=== PATIENT | female | born 1995 | race Caucasian/White ===

== ENCOUNTER 2018-05-23 22:45 | Emergency (ER) | payer MEDICAID ==
[~2018-05-23] VITALS: Ht 157.5 cm; Wt 63.5 kg
--- NOTE | 2018-05-23 23:09 | PHYS DOC ---
Adult General Chief Complaint Chief Complaint: ABDOMINAL PAIN HPI HPI 22-year-old female presents to ER with complaints of lower abdominal pain which started today. Patient reports she felt fine yesterday. Patient states pain does radiate into her left side. Patient states her urine has been darker yellowed today. She denies any fever or chills, fatigue, or diarrhea. Patient reports she has chronic nausea and vomiting denies any acute change. She denies any vomiting episodes today. Patient reports she had regular bowel movement today. LMP 05/07/18. She denies any vaginal symptoms. She denies concerns for STD. Review of Systems Review of Systems Constitutional: Denies fever or chills. Denies fatigue Eyes: Denies change in visual acuity, redness, or eye pain [] HENT: Denies nasal congestion or sore throat [] Respiratory: Denies cough or shortness of breath [] Cardiovascular: No additional information not addressed in HPI [] GI: Denies bloody stools or diarrhea. Reports lower abd pain. She reports she has chronic episodes of intermittent N/V- denies any vomiting today. Reg. BM today : Denies dysuria or hematuria. Reports urine is darker today Musculoskeletal: Reports lower abd pain has radiated into lt side lower back Integument: Denies rash, swelling or skin lesions [] Neurologic: Denies headache, focal weakness or sensory changes [] All other systems were reviewed and found to be within normal limits, except as documented in this note. Allergies Allergies Allergies Coded Allergies Type Severity Reaction Last Updated Verified No Known Drug Allergies 05/24/18 No Physical Exam Physical Exam Constitutional: Well developed, well nourished, no acute distress, non-toxic appearance. [] HENT: Normocephalic, atraumatic, bilateral external ears normal, oropharynx moist, no oral exudates, nose normal. [] Eyes: PERRLA, EOMI, conjunctiva normal, no discharge. [] Neck: Normal range of motion, no tenderness, supple, no stridor. [] Cardiovascular:Heart rate regular rhythm, no murmur [] Lungs & Thorax: Bilateral breath sounds clear to auscultation [] Abdomen: Bowel sounds normal, soft, no tenderness, no masses, no pulsatile masses. [] Skin: Warm, dry, no erythema, no rash. [] Back: No tenderness, no CVA tenderness. [] Extremities: No tenderness, no cyanosis, no clubbing, ROM intact, no edema. [] Neurologic: Alert and oriented X 3, normal motor function, normal sensory function, no focal deficits noted. [] Psychologic: Affect normal, judgement normal, mood normal. [] Current Patient Data Vital Signs Vital Signs Date Time Temp Pulse Resp B/P (MAP) Pulse Ox O2 Delivery O2 Flow Rate FiO2 05/24/18 01:28 74 18 133/78 (96) 98 Room Air 05/23/18 23:58 98.6 98.6 Lab Values Laboratory Tests Test 05/23/18 22:47 05/23/18 23:02 05/24/18 00:10 Urine Collection Type Unknown Urine Color Yellow Urine Clarity Cloudy Urine pH 6.0 Urine Specific [place] >=1.030 Urine Protein 30 mg/dL (NEG-TRACE) Urine Glucose (UA) Negative mg/dL (NEG) Urine Ketones (Stick) Negative mg/dL (NEG) Urine Blood Moderate (NEG) Urine Nitrite Negative (NEG) Urine Bilirubin Negative (NEG) Urine Urobilinogen Dipstick 0.2 mg/dL (0.2 mg/dL) Urine Leukocyte Esterase Negative (NEG) Urine RBC 6-10 /HPF (0-2) Urine WBC 11-20 /HPF (0-4) Urine Squamous Epithelial Cells Mod /LPF Urine Bacteria Many /HPF (0-FEW) Urine Mucus Marked /LPF POC Urine HCG, Qualitative Hcg positive (Negative) White Blood Count 6.3 x10^3/uL (4.0-11.0) Red Blood Count 4.06 x10^6/uL (3.50-5.40) Hemoglobin 11.1 g/dL (12.0-15.5) L Hematocrit 32.7 % (36.0-47.0) L Mean Corpuscular Volume 81 fL (79-100) Mean Corpuscular Hemoglobin 27 pg (25-35) Mean Corpuscular Hemoglobin Concent 34 g/dL (31-37) Red Cell Distribution Width 16.4 % (11.5-14.5) H Platelet Count 211 x10^3/uL (140-400) Neutrophils (%) (Auto) 66 % (31-73) Lymphocytes (%) (Auto) 29 % (24-48) Monocytes (%) (Auto) 4 % (0-9) Eosinophils (%) (Auto) 1 % (0-3) Basophils (%) (Auto) 1 % (0-3) Neutrophils # (Auto) 4.1 x10^3uL (1.8-7.7) Lymphocytes # (Auto) 1.8 x10^3/uL (1.0-4.8) Monocytes # (Auto) 0.2 x10^3/uL (0.0-1.1) Eosinophils # (Auto) 0.1 x10^3/uL (0.0-0.7) Basophils # (Auto) 0.0 x10^3/uL (0.0-0.2) Maternal Serum HCG Beta Subunit 40519 mIU/mL (0-5) H Sodium Level 141 mmol/L (136-145) Potassium Level 3.5 mmol/L (3.5-5.1) Chloride Level 105 mmol/L (98-107) Carbon Dioxide Level 26 mmol/L (21-32) Anion Gap 10 (6-14) Blood Urea Nitrogen 9 mg/dL (7-20) Creatinine 0.5 mg/dL (0.6-1.0) L Estimated GFR (Cockcroft-Gault) 154.3 Glucose Level 100 mg/dL (70-99) H Calcium Level 9.1 mg/dL (8.5-10.1) Laboratory Tests 05/24/18 00:10 Laboratory Tests 05/24/18 00:10 Microbiology 05/24/18 Wet Prep - Final, Complete Microbiology 05/24/18 Wet Prep - Final, Complete EKG EKG [] Radiology/Procedures Radiology/Procedures Pelvic Exam: JOSELYN Hewitt present @ 0025 Abdomen: External Genitalia: Normal Skin- no rash/lesions Speculum: Normal vaginal mucosa- no erythema/lesions, thin white scant discharge in vaginal vault nonmalodorous- no discharge from cervix Bimanual: No adnexal masses. Tender bilat. adnexa/suprapubic area. No CMT. Cervical os closed with no blood/tissue in vaginal vault Impressions: IMPRESSION: 1. Intrauterine is identified with estimated gestational age of 11 weeks and 6 days with estimated due date 12/07/2018. 2. Small hypoechoic lesion left ovary. Could be secondary to causes such as a small hemorrhagic cyst or endometrioma but nonspecific appearance and attention on follow-up. Electronically signed by: Carlos Eduardo Carpio MD (05/24/2018 1:34 AM) [facility] Course & Med Decision Making Course & Med Decision Making Pertinent Labs and Imaging studies reviewed. (See chart for details) 1148: Patient's urine was positive. This was discussed with patient and her who is at bedside. Patient reports they had been trying for . With patient having lower abdominal cramping into left side additional tests ordered. Will obtain basic labs and do a pelvic exam to further evaluate patient's abdominal cramping. 0105: Discussed test results and US with 11 wk 5 day intrauterine preg. with FHTs 169 on US report. Discussed need to establish [facility] and OTC vitamins w/iron as H&H was low at 11.1/32.7- she reports she had anemia in past also with . She denies any abd pain at this time- she is smiling and in no distress with boyfriend at bedside. Discussed UA results with plans for Keflex. Encourage pt to increase fluid intake. Education provided on s&s to return to ER for and discharge instructions were discussed. Staff Physician Addendum: I was working in the ER during the course of this patient's visit. I was available for consultation as needed, but I was not directly involved in the care of this patient. Keith Disclaimer Dragon Disclaimer This electronic medical record was generated, in whole or in part, using a voice recognition dictation system. Departure Departure Impression: Primary Impression: Additional Impressions: Abdominal pain during Urinary tract infection Disposition: 01 HOME, SELF-CARE Condition: STABLE Referrals: NO PCP (PCP) Patient Instructions: Abdominal Pain During , , Urinary Tract Infection Additional Instructions: Drink plenty of water. vitamins with iron daily as your hemoglobin and hematocrit was lower than normal at 11.1/32.7. You need to call and schedule appointment with [facility] for care during your and to have labs rechecked. Your ultrasound showed you are 11 weeks and 5 days gestation [place] [address]- your [facility] doctor will need to those these numbers so take these instructions with you to your appointment. Scripts Cephalexin (KEFLEX) 500 Mg Capsule 1 CAP PO BID, #14 CAP 0 Refills Prov: SOLA ANDRE APRN 05/24/18 Problem Qualifiers REFFITTSOLA APRN May 23, 2018 23:09 MEREDITH GUEVARA MD May 24, 2018 05:48
[2018-05-23 23:10] LABS: BILIRUBIN,URINE NEGATIVE (NEG); CLARITY,URINE CLOUDY; COLOR,URINE YELLOW; NITRITE,URINE NEGATIVE (NEG); PROTEIN,URINE 30 mg/dL (NEG-TRACE); UROBILINOGEN,URINE 0.2 mg/dL (0.2 mg/dL)
[2018-05-23 23:15] LABS: BACTERIA,URINE MANY /HPF (0-FEW); SQUAMOUS EPITHELIAL CELL,UR MOD /LPF
[2018-05-24 00:22] LABS: BASO % 1 % (0-3); EOS # 0.1 x10^3/uL (0.0-0.7); EOS % 1 % (0-3); HEMATOCRIT 32.7 % (36.0-47.0); HEMOGLOBIN 11.1 g/dL (12.0-15.5); LYMPH # 1.8 x10^3/uL (1.0-4.8); LYMPH % 29 % (24-48); MEAN CORPUSCULAR HEMOGLOBIN 27 pg (25-35); MEAN CORPUSCULAR HGB CONC 34 g/dL (31-37); MEAN CORPUSCULAR VOLUME 81 fL (79-100); MONO # 0.2 x10^3/uL (0.0-1.1); MONO % 4 % (0-9); NEUT # 4.1 x10^3uL (1.8-7.7); NEUT % 66 % (31-73); PLATELET COUNT 211 x10^3/uL (140-400); RED BLOOD COUNT 4.06 x10^6/uL (3.50-5.40); RED CELL DISTRIBUTION WIDTH 16.4 % (11.5-14.5); WHITE BLOOD COUNT 6.3 x10^3/uL (4.0-11.0)
[2018-05-24 00:30] LABS: CALCIUM 9.1 mg/dL (8.5-10.1); CREATININE 0.5 mg/dL (0.6-1.0); GFR 154.3; POTASSIUM 3.5 mmol/L (3.5-5.1)
[2018-05-24] MEDS ORDERED: CEPH-264 PO (01:10)
[2018-05-24 01:28] VITALS: BP 133/78
--- NOTE | 2018-05-24 01:38 | RAD ---
INDICATION: LEFT PELVIC PAIN X'S 1 DAY. COMPARISON: None. TECHNIQUE: Grayscale and color ultrasound images uterus and adnexa. Transabdominal and transvaginal images obtained. FINDINGS: Uterus: 120 x 100 x 90 mm. Intrauterine gestational sac is identified with a pole with crown-rump length of 51 mm and heart beat of 169. Right Ovary: 21 x 18 x 11 mm. Left Ovary: 38 x 20 x 19 mm. Vascular flow identified to bilateral ovaries. Hypoechoic lesion left ovary, 18 mm. IMPRESSION: 1. Intrauterine is identified with estimated gestational age of 11 weeks and 6 days with estimated due date 12/07/2018. 2. Small hypoechoic lesion left ovary. Could be secondary to causes such as a small hemorrhagic cyst or endometrioma but nonspecific appearance and attention on follow-up. Electronically signed by: Carlos Eduardo Carpio MD (05/24/2018 1:34 AM) [facility]
[2018-05-25 13:17] LABS: GC PROBE Negative (Negative)
== END 2018-05-24 01:29 | disposition home or self-care (01) ==
LOC: ER 22:45
DX: O23.41 Unspecified infection of urinary tract in pregnancy, first trimester (principal); Z3A.11 11 weeks gestation of pregnancy
CPT/HCPCS: 36415; 76801; 80048; 81001; 81025; 84702; 85025; 87086; 87491; 87591; 99284; Q0111

== ENCOUNTER 2018-06-19 18:25 | Emergency (ER) | payer MEDICAID ==
[~2018-06-19] VITALS: Ht 157.5 cm; Wt 74.4 kg
[~2018-06-19 18:25] MED LIST: CEPH-264 PO
[2018-06-19] MEDS ORDERED: IV NORMAL SALINE 1000ML BAG 1,000 ML IV ONE (19:00)
[2018-06-19 19:28] LABS: BASO # 0.1 x10^3/uL (0.0-0.2); BASO % 1 % (0-3); EOS % 0 % (0-3); HEMATOCRIT 34.4 % (36.0-47.0); HEMOGLOBIN 11.6 g/dL (12.0-15.5); LYMPH # 1.1 x10^3/uL (1.0-4.8); LYMPH % 10 % (24-48); MEAN CORPUSCULAR HEMOGLOBIN 28 pg (25-35); MEAN CORPUSCULAR HGB CONC 34 g/dL (31-37); MEAN CORPUSCULAR VOLUME 82 fL (79-100); MONO # 0.4 x10^3/uL (0.0-1.1); MONO % 3 % (0-9); NEUT % 86 % (31-73); PLATELET COUNT 187 x10^3/uL (140-400); RED BLOOD COUNT 4.22 x10^6/uL (3.50-5.40); RED CELL DISTRIBUTION WIDTH 17.2 % (11.5-14.5); WHITE BLOOD COUNT 11.6 x10^3/uL (4.0-11.0)
[2018-06-19 19:38] LABS: CALCIUM 9.1 mg/dL (8.5-10.1); CREATININE 0.5 mg/dL (0.6-1.0); GFR 154.3; POTASSIUM 3.9 mmol/L (3.5-5.1)
[2018-06-19 19:44] LABS: ALBUMIN/GLOBULIN RATIO 0.6 (1.0-1.7); TOTAL BILIRUBIN 0.3 mg/dL (0.2-1.0); TOTAL PROTEIN 7.8 g/dL (6.4-8.2)
[2018-06-19 20:19] VITALS: BP 109/71
--- NOTE | 2018-06-19 20:33 | RAD ---
EXAM: Obstetrics sonogram. HISTORY: Vaginal spotting. Back pain. TECHNIQUE: Sonographic imaging of a gravid uterus was performed. COMPARISON: 05/24/2018. FINDINGS: There is a single intrauterine fetus with a heart rate of 152 bpm. The cervix is closed and measures 6.6 cm in length. The amniotic fluid volume is grossly normal. No placental production is seen. No subchronic hematoma is seen. The maternal adnexal regions are unremarkable. There is no pelvic free fluid. The biparietal diameter is 2.97 cm, corresponding with 15 weeks and 3 days. The head circumference is 11.3 cm, corresponding with 15 weeks and 3 days. The abdominal circumference is 9.90 cm, corresponding with 16 weeks and 0 days. The femoral length is 1.91 cm, corresponding with 15 weeks and 5 days. The estimated gestational age patient combined ultrasound measurements is 15 weeks and 5 days. The EDUIN based on ultrasound measurements is 12/06/2018. IMPRESSION: Single intrauterine fetus with an estimated gestational age based on ultrasound measurements of 15 weeks and 5 days and heart rate of 152 bpm. There is no acute finding. A formal anatomy survey at approximately 20 weeks gestation is recommended. Electronically signed by: Kimmy Cancino MD (06/19/2018 8:28 PM) [facility]
--- NOTE | 2018-06-19 20:37 | PHYS DOC ---
Past Medical History Past Medical History: Anemia Past Surgical History: No Surgical History Alcohol Use: None Drug Use: None Adult General Chief Complaint Chief Complaint: VOMITING IN HPI HPI Patient is a 22 year old [f__sex] who presents with [] Review of Systems Review of Systems Constitutional: Denies fever or chills [] Eyes: Denies change in visual acuity, redness, or eye pain [] HENT: Denies nasal congestion or sore throat [] Respiratory: Denies cough or shortness of breath [] Cardiovascular: No additional information not addressed in HPI [] GI: Denies abdominal pain, nausea, vomiting, bloody stools or diarrhea [] : Denies dysuria or hematuria [] Musculoskeletal: Denies back pain or joint pain [] Integument: Denies rash or skin lesions [] Neurologic: Denies headache, focal weakness or sensory changes [] Endocrine: Denies polyuria or polydipsia [] All other systems were reviewed and found to be within normal limits, except as documented in this note. Current Medications Current Medications Current Medications Medications (Trade) Dose Ordered Sig/Lele Start Time Stop Time Status Last Admin Dose Admin Sodium Chloride 1,000 ml @ 1,000 mls/hr 1X ONCE 06/19/18 19:00 06/19/18 19:59 DC 06/19/18 19:48 1,000 MLS/HR Allergies Allergies Allergies Coded Allergies Type Severity Reaction Last Updated Verified No Known Drug Allergies 05/24/18 No Physical Exam Physical Exam Constitutional: Well developed, well nourished, no acute distress, non-toxic appearance. [] HENT: Normocephalic, atraumatic, bilateral external ears normal, oropharynx moist, no oral exudates, nose normal. [] Eyes: PERRLA, EOMI, conjunctiva normal, no discharge. [] Neck: Normal range of motion, no tenderness, supple, no stridor. [] Cardiovascular:Heart rate regular rhythm, no murmur [] Lungs & Thorax: Bilateral breath sounds clear to auscultation [] Abdomen: Bowel sounds normal, soft, no tenderness, no masses, no pulsatile masses. [] Skin: Warm, dry, no erythema, no rash. [] Back: No tenderness, no CVA tenderness. [] Extremities: No tenderness, no cyanosis, no clubbing, ROM intact, no edema. [] Neurologic: Alert and oriented X 3, normal motor function, normal sensory function, no focal deficits noted. [] Psychologic: Affect normal, judgement normal, mood normal. [] Current Patient Data Vital Signs Vital Signs Date Time Temp Pulse Resp B/P (MAP) Pulse Ox O2 Delivery O2 Flow Rate FiO2 06/19/18 19:04 98.6 78 16 127/68 (87) 100 Room Air 98.6 Lab Values Laboratory Tests Test 06/19/18 19:16 06/19/18 21:25 White Blood Count 11.6 x10^3/uL (4.0-11.0) H Red Blood Count 4.22 x10^6/uL (3.50-5.40) Hemoglobin 11.6 g/dL (12.0-15.5) L Hematocrit 34.4 % (36.0-47.0) L Mean Corpuscular Volume 82 fL (79-100) Mean Corpuscular Hemoglobin 28 pg (25-35) Mean Corpuscular Hemoglobin Concent 34 g/dL (31-37) Red Cell Distribution Width 17.2 % (11.5-14.5) H Platelet Count 187 x10^3/uL (140-400) Neutrophils (%) (Auto) 86 % (31-73) H Lymphocytes (%) (Auto) 10 % (24-48) L Monocytes (%) (Auto) 3 % (0-9) Eosinophils (%) (Auto) 0 % (0-3) Basophils (%) (Auto) 1 % (0-3) Neutrophils # (Auto) 10.0 x10^3uL (1.8-7.7) H Lymphocytes # (Auto) 1.1 x10^3/uL (1.0-4.8) Monocytes # (Auto) 0.4 x10^3/uL (0.0-1.1) Eosinophils # (Auto) 0.0 x10^3/uL (0.0-0.7) Basophils # (Auto) 0.1 x10^3/uL (0.0-0.2) Segmented Neutrophils % 94 % (35-66) H Lymphocytes % 5 % (24-48) L Monocytes % 1 % (0-10) Platelet Estimate Adequate (ADEQUATE) Anisocytosis Slight Target Cells Occ Maternal Serum HCG Beta Subunit 13775 mIU/mL (0-5) H Sodium Level 137 mmol/L (136-145) Potassium Level 3.9 mmol/L (3.5-5.1) Chloride Level 101 mmol/L (98-107) Carbon Dioxide Level 26 mmol/L (21-32) Anion Gap 10 (6-14) Blood Urea Nitrogen 7 mg/dL (7-20) Creatinine 0.5 mg/dL (0.6-1.0) L Estimated GFR (Cockcroft-Gault) 154.3 BUN/Creatinine Ratio 14 (6-20) Glucose Level 86 mg/dL (70-99) Calcium Level 9.1 mg/dL (8.5-10.1) Total Bilirubin 0.3 mg/dL (0.2-1.0) Aspartate Amino Transferase (AST) 30 U/L (15-37) Alanine Aminotransferase (ALT) 70 U/L (14-59) H Alkaline Phosphatase 88 U/L (46-116) Total Protein 7.8 g/dL (6.4-8.2) Albumin 3.0 g/dL (3.4-5.0) L Albumin/Globulin Ratio 0.6 (1.0-1.7) L Urine Collection Type Unknown Urine Color Yellow Urine Clarity Clear Urine pH 6.0 Urine Specific [place] 1.020 Urine Protein Negative mg/dL (NEG-TRACE) Urine Glucose (UA) Negative mg/dL (NEG) Urine Ketones (Stick) 40 mg/dL (NEG) Urine Blood Trace (NEG) Urine Nitrite Positive (NEG) Urine Bilirubin Negative (NEG) Urine Urobilinogen Dipstick 0.2 mg/dL (0.2 mg/dL) Urine Leukocyte Esterase Small (NEG) Urine RBC 6-10 /HPF (0-2) Urine WBC 11-20 /HPF (0-4) Urine Squamous Epithelial Cells Few /LPF Urine Bacteria Many /HPF (0-FEW) Laboratory Tests 06/19/18 19:16 Laboratory Tests 06/19/18 19:16 EKG EKG [] Radiology/Procedures Radiology/Procedures []Signed PATIENT: SHAKEEL MORRISON ACCOUNT: [id number] : 1995 LOCATION: ER AGE: 22 SEX: F EXAM STATUS: REG ER ORD. PHYSICIAN: BERNICE FELIX APRN REASON: spotting PROCEDURE: PREG MORE THAN OR EQ TO 14 WKS EXAM: Obstetrics sonogram. HISTORY: Vaginal spotting. Back pain. TECHNIQUE: Sonographic imaging of a gravid uterus was performed. COMPARISON: 05/24/2018. FINDINGS: There is a single intrauterine fetus with a heart rate of 152 bpm. The cervix is closed and measures 6.6 cm in length. The amniotic fluid volume is grossly normal. No placental production is seen. No subchronic hematoma is seen. The maternal adnexal regions are unremarkable. There is no pelvic free fluid. The biparietal diameter is 2.97 cm, corresponding with 15 weeks and 3 days. The head circumference is 11.3 cm, corresponding with 15 weeks and 3 days. The abdominal circumference is 9.90 cm, corresponding with 16 weeks and 0 days. The femoral length is 1.91 cm, corresponding with 15 weeks and 5 days. The estimated gestational age patient combined ultrasound measurements is 15 weeks and 5 days. The EDUIN based on ultrasound measurements is 12/06/2018. IMPRESSION: Single intrauterine fetus with an estimated gestational age based on ultrasound measurements of 15 weeks and 5 days and heart rate of 152 bpm. There is no acute finding. A formal anatomy survey at approximately 20 weeks gestation is recommended. Electronically signed by: Kimmy Cancino MD (06/19/2018 8:28 PM) [facility] DICTATED and SIGNED BY: KIMMY CANCINO MD DATE: 06/19/182025 Course & Med Decision Making Course & Med Decision Making Pertinent Labs and Imaging studies reviewed. (See chart for details) [] Dragon Disclaimer Dragon Disclaimer This electronic medical record was generated, in whole or in part, using a voice recognition dictation system. Departure Departure Impression: Primary Impression: Urinary tract infection affecting Disposition: 01 HOME, SELF-CARE Condition: STABLE Referrals: NO PCP (PCP) Patient Instructions: - Urinary Tract Infection Additional Instructions: Take the antibiotic as directed. Follow-up with your PCP or activated sludge attendant in one week for urine recheck. If you have increased symptoms follow-up with your activated sludge attendant earlier or return to the emergency department. Scripts Nitrofurantoin Monohyd/M-Cryst (MACROBID 100 MG CAPSULE) 100 Mg Capsule 1 CAP PO BID for uti, #14 CAP Prov: BERNICE FELIX APRN 06/19/18 BERNICE FELIX APRN Jun 19, 2018 20:37
[2018-06-19 21:00] LABS: % LYMPHS 5 % (24-48); % MONOS 1 % (0-10); % SEGS 94 % (35-66); ANISOCYTOSIS SLIGHT; PLT ESTIMATE ADEQUATE (ADEQUATE); TARGET CELLS OCC
[2018-06-19 21:37] LABS: BILIRUBIN,URINE NEGATIVE (NEG); CLARITY,URINE CLEAR; COLOR,URINE YELLOW; NITRITE,URINE POSITIVE (NEG); PROTEIN,URINE NEGATIVE (NEG-TRACE); UROBILINOGEN,URINE 0.2 mg/dL (0.2 mg/dL)
[2018-06-19 21:49] LABS: BACTERIA,URINE MANY /HPF (0-FEW); SQUAMOUS EPITHELIAL CELL,UR FEW /LPF
[2018-06-19] MEDS ORDERED: NITR100C62 PO (22:19)
[2018-06-20] MEDS ORDERED: METO10TA81 PO (16:27)
== END 2018-06-19 22:34 | disposition home or self-care (01) ==
LOC: ER 18:25
DX: O23.42 Unspecified infection of urinary tract in pregnancy, second trimester (principal); O99.012 Anemia complicating pregnancy, second trimester; O21.9 Vomiting of pregnancy, unspecified; Z3A.15 15 weeks gestation of pregnancy
CPT/HCPCS: 36415; 76805; 80053; 81001; 84702; 85007; 85025; 86850; 86900; 86901; 87086; 87186; 96360; 99284; J7030

== ENCOUNTER 2018-06-20 13:14 | Emergency (ER) | payer MEDICAID ==
[~2018-06-20] VITALS: Ht 157.5 cm; Wt 74.4 kg
[~2018-06-20 13:14] MED LIST changes: +NITR100C62 PO
[2018-06-20] MEDS ORDERED: IV NORMAL SALINE 1000ML BAG 1,000 ML IV SCH (14:48)
[2018-06-20] MEDS ORDERED: cefTRIAXone IV Push 1 GM VIAL. IVP ONE (15:00)
[2018-06-20] MEDS ORDERED: METOCLOPRAMIDE HCL 10 MG/2 ML VIAL. IV ONE (15:00)
[2018-06-20 15:06] LABS: BILIRUBIN,URINE NEGATIVE (NEG); CLARITY,URINE CLEAR; COLOR,URINE YELLOW; NITRITE,URINE POSITIVE (NEG); PH,URINE 7.5; PROTEIN,URINE NEGATIVE (NEG-TRACE)
[2018-06-20 15:12] LABS: BACTERIA,URINE MODERATE /HPF (0-FEW); RBC,URINE RARE /HPF (0-2); SQUAMOUS EPITHELIAL CELL,UR FEW /LPF
--- NOTE | 2018-06-20 15:36 | PHYS DOC ---
Past Medical History Past Medical History: Anemia Past Surgical History: No Surgical History Alcohol Use: None Drug Use: None Adult General Chief Complaint Chief Complaint: ABDOMINAL PAIN IN HPI HPI Patient is a 22 year old female presented to ER today for evaluation of lower abdominal pain, nausea or vomiting. Patient is 16 weeks , she was just seen here yesterday for the same problem. She was diagnosed with the UTI, she was put on Macrobid. However she did not have her medication filled. SHe came back here today because she woke up this morning continued to throw up and abdominal cramping. Patient also had an ultrasound OF her pelvic yesterday show a normal IUP. Patient denies any vaginal bleeding or discharge. Review of Systems Review of Systems Constitutional: Denies fever or chills [] Eyes: Denies change in visual acuity, redness, or eye pain [] HENT: Denies nasal congestion or sore throat [] Respiratory: Denies cough or shortness of breath [] Cardiovascular: No additional information not addressed in HPI [] GI: Positive for abdominal pain, nausea, vomiting, NO bloody stools or diarrhea [] : Denies dysuria or hematuria [] Musculoskeletal: Denies back pain or joint pain [] Integument: Denies rash or skin lesions [] Neurologic: Denies headache, focal weakness or sensory changes [] Endocrine: Denies polyuria or polydipsia [] All other systems were reviewed and found to be within normal limits, except as documented in this note. Current Medications Current Medications Current Medications Medications (Trade) Dose Ordered Sig/Lele Start Time Stop Time Status Last Admin Dose Admin Acetaminophen (Tylenol) 1,000 mg 1X ONCE 06/20/18 16:15 06/20/18 16:16 DC Ceftriaxone Sodium (Rocephin) 1 gm 1X ONCE 06/20/18 15:00 06/20/18 15:01 DC 06/20/18 15:08 1 GM Metoclopramide HCl (Reglan Vial) 10 mg 1X ONCE 06/20/18 15:00 06/20/18 15:01 DC 06/20/18 15:07 10 MG Sodium Chloride 1,000 ml @ 1,000 mls/hr Q1H 06/20/18 14:48 06/20/18 15:47 DC 06/20/18 15:08 1,000 MLS/HR Allergies Allergies Allergies Coded Allergies Type Severity Reaction Last Updated Verified No Known Drug Allergies 05/24/18 No Physical Exam Physical Exam Constitutional: Well developed, well nourished, no acute distress, non-toxic appearance. [] HENT: Normocephalic, atraumatic, bilateral external ears normal, oropharynx moist, no oral exudates, nose normal. [] Eyes: PERRLA, EOMI, conjunctiva normal, no discharge. [] Neck: Normal range of motion, no tenderness, supple, no stridor. [] Cardiovascular:Heart rate regular rhythm, no murmur [] Lungs & Thorax: Bilateral breath sounds clear to auscultation [] Abdomen: Bowel sounds normal, soft, tenderness AT SUPRAPUBIC AREA, no masses, no pulsatile masses. NO MCBURNEY POINT TENDERNESS, NO REBOUND, NO GUARDING, NO RLQ TENDERNESS TO PALPATION. Skin: Warm, dry, no erythema, no rash. [] Back: No tenderness, no CVA tenderness. [] Extremities: No tenderness, no cyanosis, no clubbing, ROM intact, no edema. [] Neurologic: Alert and oriented X 3, normal motor function, normal sensory function, no focal deficits noted. [] Psychologic: Affect normal, judgement normal, mood normal. [] Current Patient Data Vital Signs Vital Signs Date Time Temp Pulse Resp B/P (MAP) Pulse Ox O2 Delivery O2 Flow Rate FiO2 06/20/18 14:35 97.7 96 20 115/64 (81) 100 Room Air 97.7 Lab Values Laboratory Tests Test 06/20/18 14:45 06/20/18 15:30 Urine Collection Type Unknown Urine Color Yellow Urine Clarity Clear Urine pH 7.5 Urine Specific [place] 1.015 Urine Protein Negative mg/dL (NEG-TRACE) Urine Glucose (UA) Negative mg/dL (NEG) Urine Ketones (Stick) 40 mg/dL (NEG) Urine Blood Negative (NEG) Urine Nitrite Positive (NEG) Urine Bilirubin Negative (NEG) Urine Urobilinogen Dipstick 2.0 mg/dL (0.2 mg/dL) Urine Leukocyte Esterase Moderate (NEG) Urine RBC Rare /HPF (0-2) Urine WBC 1-4 /HPF (0-4) Urine Squamous Epithelial Cells Few /LPF Urine Bacteria Moderate /HPF (0-FEW) White Blood Count 11.1 x10^3/uL (4.0-11.0) H Red Blood Count 4.07 x10^6/uL (3.50-5.40) Hemoglobin 11.3 g/dL (12.0-15.5) L Hematocrit 32.8 % (36.0-47.0) L Mean Corpuscular Volume 81 fL (79-100) Mean Corpuscular Hemoglobin 28 pg (25-35) Mean Corpuscular Hemoglobin Concent 35 g/dL (31-37) Red Cell Distribution Width 17.4 % (11.5-14.5) H Platelet Count 165 x10^3/uL (140-400) Neutrophils (%) (Auto) 92 % (31-73) H Lymphocytes (%) (Auto) 4 % (24-48) L Monocytes (%) (Auto) 4 % (0-9) Eosinophils (%) (Auto) 0 % (0-3) Basophils (%) (Auto) 0 % (0-3) Neutrophils # (Auto) 10.3 x10^3uL (1.8-7.7) H Lymphocytes # (Auto) 0.4 x10^3/uL (1.0-4.8) L Monocytes # (Auto) 0.4 x10^3/uL (0.0-1.1) Eosinophils # (Auto) 0.0 x10^3/uL (0.0-0.7) Basophils # (Auto) 0.0 x10^3/uL (0.0-0.2) Sodium Level 135 mmol/L (136-145) L Potassium Level 3.4 mmol/L (3.5-5.1) L Chloride Level 101 mmol/L (98-107) Carbon Dioxide Level 21 mmol/L (21-32) Anion Gap 13 (6-14) Blood Urea Nitrogen 6 mg/dL (7-20) L Creatinine 0.5 mg/dL (0.6-1.0) L Estimated GFR (Cockcroft-Gault) 154.3 BUN/Creatinine Ratio 12 (6-20) Glucose Level 95 mg/dL (70-99) Calcium Level 9.1 mg/dL (8.5-10.1) Total Bilirubin 0.4 mg/dL (0.2-1.0) Aspartate Amino Transferase (AST) 28 U/L (15-37) Alanine Aminotransferase (ALT) 58 U/L (14-59) Alkaline Phosphatase 91 U/L (46-116) Total Protein 7.7 g/dL (6.4-8.2) Albumin 2.9 g/dL (3.4-5.0) L Albumin/Globulin Ratio 0.6 (1.0-1.7) L Lipase 68 U/L (73-393) L Laboratory Tests 06/20/18 15:30 Laboratory Tests 06/20/18 15:30 EKG EKG [] Radiology/Procedures Radiology/Procedures [] Course & Med Decision Making Course & Med Decision Making Pertinent Labs and Imaging studies reviewed. (See chart for details) Patient was given IV fluid and nausea medication, felt much better, will discharge her home with nausea mediation. Patient already has the prescription for MACROBID that she received yesterday. She will go get it filled after leaving here. Dragon Disclaimer Dragon Disclaimer This electronic medical record was generated, in whole or in part, using a voice recognition dictation system. Departure Departure Impression: Primary Impression: Urinary tract infection Additional Impressions: Abdominal pain during Nausea & vomiting Disposition: 01 HOME, SELF-CARE Condition: IMPROVED Referrals: SYED MALIN Jr, MD call this [facility] [facility] [facility] doctor for follow up next week. Patient Instructions: Abdominal Pain During , Nausea and Vomiting, Urinary Tract Infection, Child Scripts Metoclopramide Hcl (REGLAN) 10 Mg Tablet 1 TAB PO QID PRN for NAUSEA, #30 TAB Prov: PRISCILLA JACOBS DO 06/20/18 Problem Qualifiers PRISCILLA JACOBS DO Jun 20, 2018 15:36
[2018-06-20 15:42] LABS: BASO % 0 % (0-3); EOS % 0 % (0-3); HEMATOCRIT 32.8 % (36.0-47.0); HEMOGLOBIN 11.3 g/dL (12.0-15.5); LYMPH # 0.4 x10^3/uL (1.0-4.8); LYMPH % 4 % (24-48); MEAN CORPUSCULAR HEMOGLOBIN 28 pg (25-35); MEAN CORPUSCULAR HGB CONC 35 g/dL (31-37); MEAN CORPUSCULAR VOLUME 81 fL (79-100); MONO # 0.4 x10^3/uL (0.0-1.1); MONO % 4 % (0-9); NEUT # 10.3 x10^3uL (1.8-7.7); NEUT % 92 % (31-73); PLATELET COUNT 165 x10^3/uL (140-400); RED BLOOD COUNT 4.07 x10^6/uL (3.50-5.40); RED CELL DISTRIBUTION WIDTH 17.4 % (11.5-14.5); WHITE BLOOD COUNT 11.1 x10^3/uL (4.0-11.0)
[2018-06-20 15:55] LABS: CALCIUM 9.1 mg/dL (8.5-10.1); CREATININE 0.5 mg/dL (0.6-1.0); GFR 154.3; POTASSIUM 3.4 mmol/L (3.5-5.1)
[2018-06-20 16:01] LABS: ALBUMIN 2.9 g/dL (3.4-5.0); ALBUMIN/GLOBULIN RATIO 0.6 (1.0-1.7); TOTAL BILIRUBIN 0.4 mg/dL (0.2-1.0); TOTAL PROTEIN 7.7 g/dL (6.4-8.2)
[2018-06-20] MEDS ORDERED: ACETAMINOPHEN 500 MG TABLET PO ONE (16:15)
[2018-06-20] MEDS ORDERED: METO10TA81 PO (16:27)
[2018-06-20 16:42] VITALS: BP 112/65
--- NOTE | 2018-06-22 16:13 | VNOTE ---
CALL BACK NOTE CALL BACK Microbiology 06/20/18 Urine Culture - Final, Complete 06/20/18 Urine Culture Result 1 (MICHAELA) - Final, Complete 06/20/18 Antimicrobic Susceptibility - Final, Complete Spoke to patient about her urine culture, she states she is feeling better. She' ll follow-up with her TRANSITIONAL CARE NURSE Attending Signature I have reviewed the PA/STOCKROOM SELECTOR's note and plan of care. I was available for consultation as needed during the patient's visit in the emergency department. I agree with the clinical impression, plan, and disposition. TORSTEN COLMENARES APRN Jun 22, 2018 16:13 CIRILO CRADONA DO Jun 24, 2018 14:07
== END 2018-06-20 16:55 | disposition home or self-care (01) ==
LOC: ER 13:14
DX: O23.42 Unspecified infection of urinary tract in pregnancy, second trimester (principal); Z3A.16 16 weeks gestation of pregnancy
CPT/HCPCS: 36415; 80053; 81001; 83690; 85025; 87086; 96361; 96374; 96375; 99283; J0696; J2765; J7030; 87186

== ENCOUNTER 2018-08-10 16:03 | Observation (INO) | payer MEDICAID ==
[~2018-08-10] VITALS: Ht 158.8 cm; Wt 78.0 kg
[~2018-08-10 16:03] MED LIST changes: +METO10TA81 PO
[2018-08-10 17:40] LABS: BILIRUBIN,URINE NEGATIVE (NEG); CLARITY,URINE CLEAR; COLOR,URINE YELLOW; NITRITE,URINE POSITIVE (NEG); PROTEIN,URINE NEGATIVE (NEG-TRACE); UROBILINOGEN,URINE 0.2 mg/dL (0.2 mg/dL)
[2018-08-10 17:46] LABS: BACTERIA,URINE MANY /HPF (0-FEW); BARBITURATES NEG (NEG); BENZODIAZEPINES NEG (NEG); CANNABINOIDS NEG (NEG); COCAINE NEG (NEG); METHADONE NEG (NEG); OPIATES NEG (NEG); PHENCYCLIDINE NEG (NEG); SQUAMOUS EPITHELIAL CELL,UR MANY /LPF
[2018-08-10 17:47] LABS: RBC,URINE 0 /HPF (0-2)
[2018-08-10 17:50] LABS: AMPHETAMINE/METHAMPHETAMINE NEG (NEG)
[2018-08-10] MEDS: IV RINGERS,LACTATED 1000ML 1,000 ML IV PRN ×2 (17:56→20:03)
[2018-08-10 19:19] LABS: BASO % 0 % (0-3); EOS # 0.1 x10^3/uL (0.0-0.7); EOS % 1 % (0-3); HEMATOCRIT 33.4 % (36.0-47.0); HEMOGLOBIN 10.7 g/dL (12.0-15.5); LYMPH # 1.2 x10^3/uL (1.0-4.8); LYMPH % 11 % (24-48); MEAN CORPUSCULAR HEMOGLOBIN 27 pg (25-35); MEAN CORPUSCULAR HGB CONC 32 g/dL (31-37); MEAN CORPUSCULAR VOLUME 84 fL (79-100); MONO # 0.4 x10^3/uL (0.0-1.1); MONO % 4 % (0-9); NEUT # 9.5 x10^3uL (1.8-7.7); NEUT % 85 % (31-73); PLATELET COUNT 214 x10^3/uL (140-400); RED CELL DISTRIBUTION WIDTH 15.3 % (11.5-14.5); WHITE BLOOD COUNT 11.2 x10^3/uL (4.0-11.0)
[2018-08-10 19:26] LABS: CREATININE 0.4 mg/dL (0.6-1.0); GFR 199.6; POTASSIUM 3.3 mmol/L (3.5-5.1)
[2018-08-10 19:32] LABS: ALBUMIN 3.1 g/dL (3.4-5.0); ALBUMIN/GLOBULIN RATIO 0.7 (1.0-1.7); TOTAL BILIRUBIN 0.3 mg/dL (0.2-1.0); TOTAL PROTEIN 7.7 g/dL (6.4-8.2)
[2018-08-10] MEDS ORDERED: ZOLPIDEM 5 MG TABLET. PO PRN (19:45)
[2018-08-10] MEDS: ACETAMINOPHEN 500 MG TABLET PO PRN (20:17)
[2018-08-10] MEDS: ceFAZolin SODIUM 1 GM in IV DEXTROSE 5% 50 ML IV SCH (20:17)
[2018-08-10] MEDS ORDERED: diphenhydrAMINE HCL 25 MG CAPSULE PO ONE (20:30)
[2018-08-11] MEDS: ceFAZolin SODIUM 1 GM in IV DEXTROSE 5% 50 ML IV SCH ×2 (01:45→07:56)
[2018-08-11] MEDS: IV RINGERS,LACTATED 1000ML 1,000 ML IV PRN (04:22)
[2018-08-11] MEDS: ACETAMINOPHEN 500 MG TABLET PO PRN (04:23)
[2018-08-11 23:14] LABS: HEMOGLOBIN A1C 4.9 % (4.8-5.6)
== END 2018-08-11 10:30 | disposition home or self-care (01) ==
LOC: 3 SO LND 16:03
PROVIDERS: ADMIT Specialist; ATTEND Specialist
DX: O26.892 Other specified pregnancy related conditions, second trimester (principal); R10.9 Unspecified abdominal pain; Z3A.23 23 weeks gestation of pregnancy
CPT/HCPCS: 36415; 80053; 80307; 81001; 83036; 85025; 87086; 96365; 96366; G0378; G0379; J0690; Q0163; 87186; J7120

== ENCOUNTER 2018-09-16 15:29 | Observation (INO) | payer MEDICAID ==
[2018-09-16] MEDS ORDERED: IV RINGERS,LACTATED 1000ML 1,000 ML IV SCH ×2 (15:44)
[2018-09-16] MEDS ORDERED: MAG HYDROX/ALUMINUM HYD/SIMETH 30 ML ORAL.SUSP PO PRN (15:45)
[2018-09-16] MEDS ORDERED: ONDANSETRON PF 4 MG/2 ML VIAL. IV PRN (15:45)
[2018-09-16] MEDS ORDERED: ACETAMINOPHEN 325 MG TABLET. PO PRN (15:45)
[2018-09-16 16:17] LABS: BILIRUBIN,URINE NEGATIVE (NEG); CLARITY,URINE CLEAR; COLOR,URINE YELLOW; NITRITE,URINE NEGATIVE (NEG); PROTEIN,URINE NEGATIVE (NEG-TRACE)
[2018-09-16 16:28] LABS: BARBITURATES NEG (NEG); BENZODIAZEPINES NEG (NEG); CANNABINOIDS NEG (NEG); COCAINE NEG (NEG); METHADONE NEG (NEG); OPIATES NEG (NEG); PHENCYCLIDINE NEG (NEG)
[2018-09-16 16:29] LABS: AMPHETAMINE/METHAMPHETAMINE NEG (NEG)
[2018-09-16 16:36] LABS: BACTERIA,URINE MANY /HPF (0-FEW); RBC,URINE 20-40 /HPF (0-2)
[2018-09-16 16:37] LABS: SQUAMOUS EPITHELIAL CELL,UR MOD /LPF
--- NOTE | 2018-09-16 18:06 | RAD ---
CLINICAL HISTORY: VAG BLEEDING/CHECK PLACENTA LOCATION COMPARISON: None available. TECHNIQUE: Limited transabdominal ultrasound of the uterus was performed. FINDINGS: There is a single live fetus in cephalic position. Cardiac activity is visualized and documented at a rate of 137 beats per minute. The placenta is seen at the fundus extending anteriorly and posteriorly. without placenta previa. The amniotic fluid is normal for gestational stage. Current measurements are: BPD - 7.43 cm = 29 weeks 6 days HC - 26.93 cm = 29 weeks 3 days AC - 24.07 cm = 28 weeks 2 day FL - 5.53 cm = 29 weeks 1 days The gestational size based on todays measurements is 29 weeks 1 days +/- two weeks. . The estimated weight is 1288+/- 191 gm. This is at the 54 percentile for the expected gestational age. All measured ratios and indices are within normal limits. The estimated date of delivery is 12/01/2018. IMPRESSION: Single live intrauterine gestation with estimated gestational age of 29 weeks 1 day and estimated date of delivery 12/01/2018. Electronically signed by: Alden Hawley MD (09/16/2018 6:03 PM) [facility]
[2018-09-16 18:16] LABS: BASO % 0 % (0-3); EOS % 1 % (0-3); HEMATOCRIT 30.4 % (36.0-47.0); LYMPH # 1.1 x10^3/uL (1.0-4.8); LYMPH % 17 % (24-48); MEAN CORPUSCULAR HEMOGLOBIN 27 pg (25-35); MEAN CORPUSCULAR HGB CONC 33 g/dL (31-37); MEAN CORPUSCULAR VOLUME 83 fL (79-100); MONO # 0.4 x10^3/uL (0.0-1.1); MONO % 6 % (0-9); NEUT # 5.1 x10^3uL (1.8-7.7); NEUT % 76 % (31-73); PLATELET COUNT 228 x10^3/uL (140-400); RED BLOOD COUNT 3.68 x10^6/uL (3.50-5.40); RED CELL DISTRIBUTION WIDTH 16.1 % (11.5-14.5); WHITE BLOOD COUNT 6.6 x10^3/uL (4.0-11.0)
== END 2018-09-16 20:12 | disposition home or self-care (01) ==
LOC: 3 SO LND 15:29
PROVIDERS: ADMIT Obstetrics & Gynecology; ATTEND Obstetrics & Gynecology
DX: O26.853 Spotting complicating pregnancy, third trimester (principal); O26.893 Other specified pregnancy related conditions, third trimester; R10.9 Unspecified abdominal pain; Z3A.28 28 weeks gestation of pregnancy
CPT/HCPCS: 36415; 76805; 80307; 81001; 85025; 86850; 86900; 86901; 87086; G0378; G0379; 87186; J7120

== ENCOUNTER 2019-03-08 22:55 | Emergency (ER) | payer OTHER ==
[~2019-03-08] VITALS: Ht 162.6 cm; Wt 71.7 kg
[2019-03-08] MEDS ORDERED: ONDANSETRON PF 4 MG/2 ML VIAL. IV ONE (23:45)
[2019-03-08] MEDS ORDERED: IV NORMAL SALINE 1000ML BAG 1,000 ML IV ONE (23:45)
[2019-03-08] MEDS ORDERED: FAMOTIDINE 20 MG/2 ML VIAL IVP ONE (23:45)
[2019-03-09 00:10] LABS: BASO % 1 % (0-3); EOS # 0.1 x10^3/uL (0.0-0.7); EOS % 1 % (0-3); HEMATOCRIT 27.9 % (36.0-47.0); HEMOGLOBIN 8.9 g/dL (12.0-15.5); LYMPH # 2.4 x10^3/uL (1.0-4.8); LYMPH % 36 % (24-48); MEAN CORPUSCULAR HEMOGLOBIN 23 pg (25-35); MEAN CORPUSCULAR HGB CONC 32 g/dL (31-37); MEAN CORPUSCULAR VOLUME 74 fL (79-100); MONO # 0.3 x10^3/uL (0.0-1.1); MONO % 4 % (0-9); NEUT # 3.8 x10^3/uL (1.8-7.7); NEUT % 58 % (31-73); PLATELET COUNT 289 x10^3/uL (140-400); RED CELL DISTRIBUTION WIDTH 16.4 % (11.5-14.5); WHITE BLOOD COUNT 6.7 x10^3/uL (4.0-11.0)
--- NOTE | 2019-03-09 00:10 | PHYS DOC ---
Past Medical History Past Medical History: Anemia Past Surgical History: Tubal ligation Smoking: Cigarettes Alcohol Use: None Drug Use: None Adult General Chief Complaint Chief Complaint: CHEST PAIN HPI HPI 23 y/o female presents with 2 month history of intermittent chest pain. Reports worse at night when laying down. Denies leg swelling or calf tenderness. Denies pleuritic pain. Denies trauma. Denies . Reports increased life stressors. Review of Systems Review of Systems Constitutional: Denies fever or chills Eyes: Denies change in visual acuity, redness, or eye pain HENT: Denies nasal congestion or sore throat Respiratory: Denies cough or shortness of breath Cardiovascular: Reports chest pain and palpitations GI: Denies abdominal pain, nausea, vomiting, or diarrhea : Denies dysuria or hematuria Musculoskeletal: Denies back pain or joint pain Integument: Denies rash or skin lesions Neurologic: Denies headache, focal weakness or sensory changes Complete systems were reviewed and found to be within normal limits, except as documented in this note. Current Medications Current Medications Current Medications Medications (Trade) Dose Ordered Sig/Lele Start Time Stop Time Status Last Admin Dose Admin Famotidine (Pepcid Vial) 20 mg 1X ONCE 03/08/19 23:45 03/08/19 23:46 DC 03/08/19 23:54 20 MG Info (CONTRAST GIVEN -- Rx MONITORING) 1 each PRN DAILY PRN 03/09/19 02:00 03/09/19 03:22 DC Iohexol (Omnipaque 350 Mg/ml) 90 ml 1X ONCE 03/09/19 02:30 03/09/19 02:31 DC 03/09/19 02:04 90 ML Ketorolac Tromethamine (Toradol 15mg Vial) 15 mg 1X ONCE 03/09/19 02:45 03/09/19 02:46 DC 03/09/19 02:30 15 MG Ondansetron HCl (Zofran) 4 mg 1X ONCE 03/08/19 23:45 03/08/19 23:46 DC 03/08/19 23:54 4 MG Sodium Chloride 1,000 ml @ 1,000 mls/hr 1X ONCE 03/08/19 23:45 03/09/19 00:44 DC 03/08/19 23:54 1,000 MLS/HR Allergies Allergies Allergies Coded Allergies Type Severity Reaction Last Updated Verified No Known Drug Allergies 05/24/18 No Physical Exam Physical Exam Constitutional: Well developed, well nourished, no acute distress, non-toxic appearance HENT: Normocephalic, atraumatic, oropharynx moist, nose normal Eyes: Conjunctiva normal, no discharge Neck: Normal range of motion, no tenderness, supple, no meningeal signs Cardiovascular: Heart rate normal and regular rhythm Lungs & Thorax: Bilateral breath sounds clear to auscultation, no respiratory distress Abdomen: Soft, no tenderness Skin: Warm, dry, no erythema, no rash Extremities: No tenderness, ROM intact, no edema Neurologic: Alert and oriented X 3, no focal deficits noted Psychologic: Affect normal, judgement normal Current Patient Data Vital Signs Vital Signs Date Time Temp Pulse Resp B/P (MAP) Pulse Ox O2 Delivery O2 Flow Rate FiO2 03/09/19 03:00 60 18 105/60 (75) 100 Room Air 03/08/19 23:08 97.7 97.7 Lab Values Laboratory Tests Test 03/08/19 23:50 White Blood Count 6.7 x10^3/uL (4.0-11.0) Red Blood Count 3.80 x10^6/uL (3.50-5.40) Hemoglobin 8.9 g/dL (12.0-15.5) L Hematocrit 27.9 % (36.0-47.0) L Mean Corpuscular Volume 74 fL (79-100) L Mean Corpuscular Hemoglobin 23 pg (25-35) L Mean Corpuscular Hemoglobin Concent 32 g/dL (31-37) Red Cell Distribution Width 16.4 % (11.5-14.5) H Platelet Count 289 x10^3/uL (140-400) Neutrophils (%) (Auto) 58 % (31-73) Lymphocytes (%) (Auto) 36 % (24-48) Monocytes (%) (Auto) 4 % (0-9) Eosinophils (%) (Auto) 1 % (0-3) Basophils (%) (Auto) 1 % (0-3) Neutrophils # (Auto) 3.8 x10^3/uL (1.8-7.7) Lymphocytes # (Auto) 2.4 x10^3/uL (1.0-4.8) Monocytes # (Auto) 0.3 x10^3/uL (0.0-1.1) Eosinophils # (Auto) 0.1 x10^3/uL (0.0-0.7) Basophils # (Auto) 0.0 x10^3/uL (0.0-0.2) D-Dimer (Oliva) 0.61 ug/mlFEU (0.00-0.50) H Urine Test Negative (NEG) Sodium Level 145 mmol/L (136-145) Potassium Level 3.8 mmol/L (3.5-5.1) Chloride Level 109 mmol/L (98-107) H Carbon Dioxide Level 26 mmol/L (21-32) Anion Gap 10 (6-14) Blood Urea Nitrogen 12 mg/dL (7-20) Creatinine 0.6 mg/dL (0.6-1.0) Estimated GFR (Cockcroft-Gault) 123.9 BUN/Creatinine Ratio 20 (6-20) Glucose Level 108 mg/dL (70-99) H Calcium Level 9.2 mg/dL (8.5-10.1) Magnesium Level 1.8 mg/dL (1.8-2.4) Total Bilirubin 0.1 mg/dL (0.2-1.0) L Aspartate Amino Transferase (AST) 14 U/L (15-37) L Alanine Aminotransferase (ALT) 30 U/L (14-59) Alkaline Phosphatase 65 U/L (46-116) Troponin I Quantitative < 0.017 ng/mL (0.000-0.055) TU-Cke-Y-Type Natriuretic Peptide 61 pg/mL (0-124) Total Protein 7.6 g/dL (6.4-8.2) Albumin 3.9 g/dL (3.4-5.0) Albumin/Globulin Ratio 1.1 (1.0-1.7) Lipase 133 U/L (73-393) Urine Opiates Screen Neg (NEG) Urine Methadone Screen Neg (NEG) Urine Barbiturates Neg (NEG) Urine Phencyclidine Screen Neg (NEG) Urine Amphetamine/Methamphetamine Neg (NEG) Urine Benzodiazepines Screen Neg (NEG) Urine Cocaine Screen Neg (NEG) Urine Cannabinoids Screen Neg (NEG) Urine Ethyl Alcohol Neg (NEG) Laboratory Tests 03/08/19 23:50 Laboratory Tests 03/08/19 23:50 EKG EKG @2315 NSR at 73bpm, NO ST elevation, QRS 82ms, QT/QTc 402/447ms Radiology/Procedures Radiology/Procedures PROCEDURE: CHEST PA & LATERAL PA and lateral chest x-rays HISTORY: Chest pain FINDINGS: Heart size normal. Mediastinal silhouette is normal. No pneumothorax, pulmonary opacities or pleural effusions. Bones are unremarkable. IMPRESSION: No acute process. Electronically signed by: Ector Vera MD (03/09/2019 3:36 AM) [facility] PROCEDURE: CT ANGIOGRAPHY CHEST CT angiography chest with contrast PQRS statement: CT scans at this facility use dose reduction including either automated exposure control, iterative reconstructions, and /or weight based radiation dosing via mA and kV modification when appropriate to reduce radiation dose to as low as reasonably achievable. HISTORY: Chest pain, elevated d-dimer. TECHNIQUE: Helical CT imaging of the chest with 3-D MIP reconstructions of the pulmonary arteries to assess for emboli with 90 mL Omnipaque 350 intravenous contrast. FINDINGS: No pulmonary artery emboli. Heart size normal. Thoracic aorta and esophagus are unremarkable. Minimal anterior mediastinal nonmasslike density likely residual thymus gland given the patient's age. No adenopathy in the chest. No pneumothorax, pulmonary opacities or pleural effusions. Bones are unremarkable. IMPRESSION: No acute process. No pulmonary artery emboli. Electronically signed by: Ector Vera MD (03/09/2019 2:46 AM) [facility] Course & Med Decision Making Course & Med Decision Making Pertinent Labs and Imaging studies reviewed. (See chart for details) Patient presents with atypical chest pain which has been intermittent for last 2 months. Worse with laying down at night. Hx of increased life stressors. EKG stable. Labs obtained and posted to chart. Troponin WNL. D-dimer elevated. CXR and CTA chest without acute process. Patient stable for discharge home with outpatient follow-up with PCP. Discussed findings and plan with patient and family, who acknowledge understanding and agreement. Keith Disclaimer Dragon Disclaimer This electronic medical record was generated, in whole or in part, using a voice recognition dictation system. Departure Departure Impression: Primary Impression: Atypical chest pain Additional Impression: Anxiety Disposition: 01 HOME, SELF-CARE Condition: STABLE Referrals: NO PCP (PCP) Patient Instructions: Anxiety and Panic Attacks, Dmgl-ro-Eeaq, Chest Pain (Nonspecific), Duns-li-Eeck Scripts Famotidine (PEPCID) 20 Mg Tablet 20 MG PO BID, #20 TAB Prov: CIRILO CARDONA DO 03/09/19 The HEART Score for CP Pts HEART Score for Chest Pain: HEART Score for Chest Pain Response (Comments) Value History Slighlty/Non-Suspicious 0 ECG Normal 0 Age < 45 0 Risk Factors 1 or 2 Risk Factors 1 Troponin < Normal Limit 0 Total 1 Risk Factors: Risk Factors: DM, Current or recent (<one month) smoker, HTN, HLP, family history of CAD, obesity. Risk Scores: Score 0 - 3: 2.5% MACE over next 6 weeks - Discharge Home Score 4 - 6: 20.3% MACE over next 6 weeks - Admit for Clinical Observation Score 7 - 10: 72.7% MACE over next 6 weeks - Early Invasive Strategies Problem Qualifiers CIRILO CARDONA DO Mar 09, 2019 00:10
[2019-03-09 00:14] LABS: AMPHETAMINE/METHAMPHETAMINE NEG (NEG); BARBITURATES NEG (NEG); BENZODIAZEPINES NEG (NEG); CANNABINOIDS NEG (NEG); COCAINE NEG (NEG); METHADONE NEG (NEG); OPIATES NEG (NEG); PHENCYCLIDINE NEG (NEG)
[2019-03-09 00:16] LABS: CALCIUM 9.2 mg/dL (8.5-10.1); CREATININE 0.6 mg/dL (0.6-1.0); GFR 123.9; POTASSIUM 3.8 mmol/L (3.5-5.1)
[2019-03-09 00:21] LABS: ALBUMIN 3.9 g/dL (3.4-5.0); ALBUMIN/GLOBULIN RATIO 1.1 (1.0-1.7); MAGNESIUM 1.8 mg/dL (1.8-2.4); TOTAL BILIRUBIN 0.1 mg/dL (0.2-1.0); TOTAL PROTEIN 7.6 g/dL (6.4-8.2)
[2019-03-09 00:41] LABS: U PREG PATIENT NEGATIVE (NEG)
[2019-03-09] MEDS ORDERED: CONTRAST GIVEN. MC PRN (02:00)
[2019-03-09] MEDS ORDERED: IOHEXOL 350 MG/ML 100 ML VIAL. IV ONE (02:30)
[2019-03-09] MEDS ORDERED: KETOROLAC 15 MG/ML VIAL. IV ONE (02:45)
--- NOTE | 2019-03-09 02:49 | RAD ---
CT angiography chest with contrast PQRS statement: CT scans at this facility use dose reduction including either automated exposure control, iterative reconstructions, and /or weight based radiation dosing via mA and kV modification when appropriate to reduce radiation dose to as low as reasonably achievable. HISTORY: Chest pain, elevated d-dimer. TECHNIQUE: Helical CT imaging of the chest with 3-D MIP reconstructions of the pulmonary arteries to assess for emboli with 90 mL Omnipaque 350 intravenous contrast. FINDINGS: No pulmonary artery emboli. Heart size normal. Thoracic aorta and esophagus are unremarkable. Minimal anterior mediastinal nonmasslike density likely residual thymus gland given the patient's age. No adenopathy in the chest. No pneumothorax, pulmonary opacities or pleural effusions. Bones are unremarkable. IMPRESSION: No acute process. No pulmonary artery emboli. Electronically signed by: Ector Vera MD (03/09/2019 2:46 AM) [id number]
[2019-03-09] MEDS ORDERED: FAMO-63 PO (02:58)
[2019-03-09 03:00] VITALS: BP 105/60
--- NOTE | 2019-03-09 03:39 | RAD ---
PA and lateral chest x-rays HISTORY: Chest pain FINDINGS: Heart size normal. Mediastinal silhouette is normal. No pneumothorax, pulmonary opacities or pleural effusions. Bones are unremarkable. IMPRESSION: No acute process. Electronically signed by: Ector Vera MD (03/09/2019 3:36 AM) [id number]
--- NOTE | 2019-03-09 07:14 | EKG ---
[facility] [address] [place] [address] Test Date: 2019-03-08 Test Time: 23:15:50 Pat Name: SHAKEEL MORRISON Department: Room: Gender: F Manager Behavior: : 1995 Requested By: CIRILO CARDONA Order Number: [id number] Reading MD: Measurements Intervals Benson Rate: 73 P: 24 NC: 152 QRS: 19 QRSD: 82 T: 34 QT: 402 QTc: 446 Interpretive Statements SINUS RHYTHM NORMAL ECG No previous ECG available for comparison
== END 2019-03-09 03:05 | disposition home or self-care (01) ==
LOC: ER 22:55
DX: R07.89 Other chest pain (principal); F41.9 Anxiety disorder, unspecified; F17.210 Nicotine dependence, cigarettes, uncomplicated; Z86.2 Personal history of diseases of the blood and blood-forming organs and certain disorders involving the immune mechanism
CPT/HCPCS: 36415; 71046; 71275; 80053; 80307; 81025; 83690; 83735; 83880; 84484; 85025; 85379; 93005; 96374; 96375; 99285; J1885; J2405; J3490; J7030; Q9967

== ENCOUNTER 2019-03-28 13:25 | Inpatient (IN) | payer OTHER ==
[~2019-03-28] VITALS: Ht 157.5 cm; Wt 75.7 kg
[~2019-03-28 13:25] MED LIST changes: +FAMO-63 PO
[2019-03-28 14:55] LABS: BASO % 0 % (0-3); EOS % 0 % (0-3); HEMOGLOBIN 10.2 g/dL (12.0-15.5); LYMPH # 0.7 x10^3/uL (1.0-4.8); LYMPH % 7 % (24-48); MEAN CORPUSCULAR HEMOGLOBIN 22 pg (25-35); MEAN CORPUSCULAR HGB CONC 31 g/dL (31-37); MEAN CORPUSCULAR VOLUME 71 fL (79-100); MONO # 0.3 x10^3/uL (0.0-1.1); MONO % 3 % (0-9); NEUT # 9.1 x10^3/uL (1.8-7.7); NEUT % 90 % (31-73); PLATELET COUNT 258 x10^3/uL (140-400); RED BLOOD COUNT 4.68 x10^6/uL (3.50-5.40); RED CELL DISTRIBUTION WIDTH 17.5 % (11.5-14.5); WHITE BLOOD COUNT 10.2 x10^3/uL (4.0-11.0)
[2019-03-28 14:58] LABS: BILIRUBIN,URINE NEGATIVE (NEG); CLARITY,URINE CLOUDY; COLOR,URINE AMBER; NITRITE,URINE NEGATIVE (NEG); PH,URINE 5.5; PROTEIN,URINE 100 mg/dL (NEG-TRACE); UROBILINOGEN,URINE 0.2 mg/dL (0.2 mg/dL)
[2019-03-28 15:04] LABS: BARBITURATES NEG (NEG); BENZODIAZEPINES NEG (NEG); CANNABINOIDS NEG (NEG); COCAINE NEG (NEG); METHADONE NEG (NEG); OPIATES NEG (NEG); PHENCYCLIDINE NEG (NEG)
[2019-03-28 15:05] LABS: BACTERIA,URINE MODERATE /HPF (0-FEW); RBC,URINE 0 /HPF (0-2); SQUAMOUS EPITHELIAL CELL,UR MANY /LPF; WBC,URINE TNTC /HPF (0-4)
[2019-03-28 15:05] LABS: CREATININE 0.7 mg/dL (0.6-1.0); GFR 103.7; POTASSIUM 3.2 mmol/L (3.5-5.1)
[2019-03-28 15:06] LABS: AMPHETAMINE/METHAMPHETAMINE NEG (NEG)
[2019-03-28 15:10] LABS: ALBUMIN 4.2 g/dL (3.4-5.0); ALBUMIN/GLOBULIN RATIO 0.9 (1.0-1.7); TOTAL BILIRUBIN 0.8 mg/dL (0.2-1.0); TOTAL PROTEIN 8.9 g/dL (6.4-8.2)
[2019-03-28 15:17] LABS: % BANDS 16 % (0-9); % LYMPHS 10 % (24-48); % MONOS 2 % (0-10); % SEGS 72 % (35-66); PLT ESTIMATE ADEQUATE (ADEQUATE)
[2019-03-28 15:18] LABS: ANISOCYTOSIS SLIGHT; HYPOCHROMIA SLIGHT; MICROCYTOSIS MOD
[2019-03-28] MEDS ORDERED: POTASSIUM CHLORIDE 20 MEQ TABLET.ER. PO ONE (15:30)
[2019-03-28] MEDS ORDERED: cefTRIAXone IV Push 1 GM VIAL. IVP ONE (15:30)
[2019-03-28] MEDS ORDERED: MORPHINE SULFATE 4 MG/ML VIAL. IV ONE (15:30)
[2019-03-28] MEDS ORDERED: IV NORMAL SALINE 1000ML BAG 1,000 ML IV ONE (15:30)
[2019-03-28] MEDS ORDERED: ONDANSETRON PF 4 MG/2 ML VIAL. IV ONE (15:30)
[2019-03-28] MEDS ORDERED: IOHEXOL 300 MG/ML 100ML VIAL. IV ONE (15:45)
[2019-03-28] MEDS ORDERED: CONTRAST GIVEN. MC PRN (15:45)
--- NOTE | 2019-03-28 16:30 | RAD ---
Exam: CT abdomen and pelvis with contrast INDICATION: Right lower quadrant pain TECHNIQUE: Sequential axial images through the abdomen and pelvis obtained following the administration of 75 mL of Omni 300 IV contrast. Sagittal and coronal reformatted images were reconstructed from the axial data and reviewed. Comparisons: None FINDINGS: Heart size is normal. No pericardial effusion. Visualized lung bases are clear. No pleural effusion. Liver, spleen, pancreas, gallbladder and adrenals are unremarkable. Kidneys demonstrate symmetric enhancement. No perinephric inflammation or hydronephrosis. Bladder is decompressed not well evaluated. Uterus is not enlarged. No abnormal adnexal mass. Wall thickening with submucosal edema is present throughout the ascending, transverse and proximal descending transverse colon. Appendix is normal. Remainder of the large and small bowel are unremarkable. No obstruction. No free intra-abdominal air or fluid. Abdominal aorta has a normal course and caliber. Abdominal vasculature is patent. No enlarged abdominal lymph nodes are identified. No suspicious osseous lesions or acute fractures. IMPRESSION: 1. Diffuse colitis affecting the ascending, transverse and proximal descending colon. Findings may be infectious or inflammatory in etiology. No evidence for perforation or obstruction. 2. Normal-appearing appendix Exposure: One or more of the following in the visualized dose reduction techniques were utilized for this examination: 1. Automated exposure control 2. Adjustment of the MA and/or KV according to patient size 3. Use of iterative of reconstructive technique Electronically signed by: Jacques Gomez MD (03/28/2019 4:28 PM) [facility]
--- NOTE | 2019-03-28 17:04 | PHYS DOC ---
Past Medical History Past Medical History: Anemia Past Surgical History: Tubal ligation Alcohol Use: None Drug Use: None Adult General Chief Complaint Chief Complaint: ABDOMINAL PAIN HPI HPI Patient is a 23 year old female who presents to the emergency department with complaints of lower abdominal cramping since last night. Patient reports that she has had at least 10 episodes of diarrhea, and 4 episodes of vomiting since the pain began. She also reports nausea with frequent dry heaves. She currently reports her pain is 10 out of 10 on the pain scale, she denies any alleviating factors. Patient states that she feels short of breath with activity and she also has a frontal headache, nasal congestion, and a runny nose. ROS Patient denies any vision changes, dizziness, ear pain, sore throat, sneezing, chest pain, dysuria, hematuria, increased urinary frequency, or irregular vaginal discharge. She reports a history of GERD and anxiety. In her surgical history includes bilateral tubal ligation. Her last menstrual cycle was approximately 21 days ago, the patient denies any use of tobacco, alcohol, or illicit drugs. All other ROS is neg unless otherwise noted in HPI. Review of Systems Review of Systems See Above Current Medications Current Medications Current Medications Medications (Trade) Dose Ordered Sig/Lele Start Time Stop Time Status Last Admin Dose Admin Ceftriaxone Sodium (Rocephin) 1 gm 1X ONCE 03/28/19 15:30 03/28/19 15:31 DC 03/28/19 17:27 1 GM Info (CONTRAST GIVEN -- Rx MONITORING) 1 each PRN DAILY PRN 03/28/19 15:45 03/30/19 15:44 Iohexol (Omnipaque 300 Mg/ml) 75 ml 1X ONCE 03/28/19 15:45 03/28/19 15:46 DC 03/28/19 16:11 75 ML Morphine Sulfate (Morphine Sulfate) 4 mg 1X ONCE 03/28/19 15:30 03/28/19 15:31 DC 03/28/19 15:25 4 MG Ondansetron HCl (Zofran) 4 mg 1X ONCE 03/28/19 15:30 03/28/19 15:31 DC 03/28/19 15:24 4 MG Potassium Chloride (Klor-Con) 40 meq 1X ONCE 03/28/19 15:30 03/28/19 15:31 DC 03/28/19 17:28 40 MEQ Sodium Chloride 1,000 ml @ 125 mls/hr Q8H 03/28/19 17:28 03/29/19 17:27 03/29/19 01:28 125 MLS/HR Allergies Allergies Allergies Coded Allergies Type Severity Reaction Last Updated Verified No Known Drug Allergies 05/24/18 No Physical Exam Physical Exam See Above Constitutional: Well developed, well nourished, no acute distress, ill appearance. [] HENT: Normocephalic, atraumatic, bilateral external ears normal, oropharynx moist, no oral exudates, nose normal. [] Eyes: PERRLA, EOMI, conjunctiva normal, no discharge. [] Neck: Normal range of motion,, no stridor. [] Cardiovascular:Heart rate regular rhythm, no murmur [] Lungs & Thorax: Bilateral breath sounds clear to auscultation [] Abdomen: Bowel sounds normal, soft, RLQ TTP, no rebound tenderness, no guarding, no masses, no pulsatile masses; Rovsing's sign positive, negative psoas sign. Skin: Warm, dry, no erythema, no rash. [] Back: No tenderness, no CVA tenderness. [] Extremities: No cyanosis, no clubbing, ROM intact, no edema. [] Neurologic: Alert and oriented X 3, no focal deficits noted. [] Psychologic: Affect normal, judgement normal, mood normal. [] Current Patient Data Vital Signs Vital Signs Date Time Temp Pulse Resp B/P (MAP) Pulse Ox O2 Delivery O2 Flow Rate FiO2 03/28/19 17:00 93 20 106/60 (75) 99 Room Air 03/28/19 14:05 99.0 99.0 Lab Values Laboratory Tests Test 03/28/19 14:11 03/28/19 14:15 03/28/19 14:16 Urine Collection Type Void Urine Color Leta Urine Clarity Cloudy Urine pH 5.5 Urine Specific [place] >=1.030 Urine Protein 100 mg/dL (NEG-TRACE) Urine Glucose (UA) Negative mg/dL (NEG) Urine Ketones (Stick) Trace mg/dL (NEG) Urine Blood Negative (NEG) Urine Nitrite Negative (NEG) Urine Bilirubin Negative (NEG) Urine Urobilinogen Dipstick 0.2 mg/dL (0.2 mg/dL) Urine Leukocyte Esterase Moderate (NEG) Urine RBC 0 /HPF (0-2) Urine WBC Tntc /HPF (0-4) Urine Squamous Epithelial Cells Many /LPF Urine Bacteria Moderate /HPF (0-FEW) Urine Mucus Slight /LPF White Blood Count 10.2 x10^3/uL (4.0-11.0) Red Blood Count 4.68 x10^6/uL (3.50-5.40) Hemoglobin 10.2 g/dL (12.0-15.5) L Hematocrit 33.0 % (36.0-47.0) L Mean Corpuscular Volume 71 fL (79-100) L Mean Corpuscular Hemoglobin 22 pg (25-35) L Mean Corpuscular Hemoglobin Concent 31 g/dL (31-37) Red Cell Distribution Width 17.5 % (11.5-14.5) H Platelet Count 258 x10^3/uL (140-400) Neutrophils (%) (Auto) 90 % (31-73) H Lymphocytes (%) (Auto) 7 % (24-48) L Monocytes (%) (Auto) 3 % (0-9) Eosinophils (%) (Auto) 0 % (0-3) Basophils (%) (Auto) 0 % (0-3) Neutrophils # (Auto) 9.1 x10^3/uL (1.8-7.7) H Lymphocytes # (Auto) 0.7 x10^3/uL (1.0-4.8) L Monocytes # (Auto) 0.3 x10^3/uL (0.0-1.1) Eosinophils # (Auto) 0.0 x10^3/uL (0.0-0.7) Basophils # (Auto) 0.0 x10^3/uL (0.0-0.2) Segmented Neutrophils % 72 % (35-66) H Band Neutrophils % 16 % (0-9) H Lymphocytes % 10 % (24-48) L Monocytes % 2 % (0-10) Platelet Estimate Adequate (ADEQUATE) Hypochromasia Slight Anisocytosis Slight Microcytosis Mod Sodium Level 140 mmol/L (136-145) Potassium Level 3.2 mmol/L (3.5-5.1) L Chloride Level 100 mmol/L (98-107) Carbon Dioxide Level 26 mmol/L (21-32) Anion Gap 14 (6-14) Blood Urea Nitrogen 8 mg/dL (7-20) Creatinine 0.7 mg/dL (0.6-1.0) Estimated GFR (Cockcroft-Gault) 103.7 BUN/Creatinine Ratio 11 (6-20) Glucose Level 101 mg/dL (70-99) H Calcium Level 9.0 mg/dL (8.5-10.1) Magnesium Level 1.6 mg/dL (1.8-2.4) L Iron Level 8 ug/dL (50-170) L Total Iron Binding Capacity 432 ug/dL (250-450) Iron Saturation 2 % (15-34) L Total Bilirubin 0.8 mg/dL (0.2-1.0) Aspartate Amino Transferase (AST) 26 U/L (15-37) Alanine Aminotransferase (ALT) 34 U/L (14-59) Alkaline Phosphatase 78 U/L (46-116) Total Protein 8.9 g/dL (6.4-8.2) H Albumin 4.2 g/dL (3.4-5.0) Albumin/Globulin Ratio 0.9 (1.0-1.7) L Urine Opiates Screen Neg (NEG) Urine Methadone Screen Neg (NEG) Urine Barbiturates Neg (NEG) Urine Phencyclidine Screen Neg (NEG) Urine Amphetamine/Methamphetamine Neg (NEG) Urine Benzodiazepines Screen Neg (NEG) Urine Cocaine Screen Neg (NEG) Urine Cannabinoids Screen Neg (NEG) Urine Ethyl Alcohol Neg (NEG) POC Urine HCG, Qualitative Hcg negative (Negative) Laboratory Tests 03/28/19 14:15 Laboratory Tests 03/28/19 14:15 EKG EKG [] Radiology/Procedures Radiology/Procedures PROCEDURE: CT ABD PELV W/ IV CONTRST ONLY Exam: CT abdomen and pelvis with contrast INDICATION: Right lower quadrant pain TECHNIQUE: Sequential axial images through the abdomen and pelvis obtained following the administration of 75 mL of Omni 300 IV contrast. Sagittal and coronal reformatted images were reconstructed from the axial data and reviewed. Comparisons: None FINDINGS: Heart size is normal. No pericardial effusion. Visualized lung bases are clear. No pleural effusion. Liver, spleen, pancreas, gallbladder and adrenals are unremarkable. Kidneys demonstrate symmetric enhancement. No perinephric inflammation or hydronephrosis. Bladder is decompressed not well evaluated. Uterus is not enlarged. No abnormal adnexal mass. Wall thickening with submucosal edema is present throughout the ascending, transverse and proximal descending transverse colon. Appendix is normal. Remainder of the large and small bowel are unremarkable. No obstruction. No free intra-abdominal air or fluid. Abdominal aorta has a normal course and caliber. Abdominal vasculature is patent. No enlarged abdominal lymph nodes are identified. No suspicious osseous lesions or acute fractures. IMPRESSION: 1. Diffuse colitis affecting the ascending, transverse and proximal descending colon. Findings may be infectious or inflammatory in etiology. No evidence for perforation or obstruction. 2. Normal-appearing appendix [] Course & Med Decision Making Course & Med Decision Making Pertinent Labs and Imaging studies reviewed. (See chart for details) dx: acute colitis, 1728 Spoke with who is the admitting physician, and care was assumed following discussion of patient. Stool cultures were ordered per his instruction, no antibiotics to be given per Dr. Bach Patient's vital signs stable. Patient remains afebrile, appears nontoxic, respirations even and unlabored. Patient will be admitted to the med/surg floor. Patient's case and plan of care also discussed with [] Keith Disclaimer Dragon Disclaimer This electronic medical record was generated, in whole or in part, using a voice recognition dictation system. Departure Departure Impression: Primary Impression: Colitis Disposition: ADMITTED INPATIENT Admitting Physician: COOPER Galvez) Condition: STABLE Referrals: NO PCP (PCP) TEJINDER HALL APRN Mar 28, 2019 17:04
[2019-03-28] MEDS ORDERED: ONDANSETRON PF 4 MG/2 ML VIAL. IV PRN ×2 (17:30→18:00)
--- NOTE | 2019-03-28 18:01 | PDOC1 ---
History and Physical Date of Admission Date of Admission DATE: 03/28/19 TIME: 17:58 Identification/Chief Complaint Chief Complaint Abdominal pain Source Source: Patient History of Present Illness History of Present Illness Ms Espinosa is a 23 yo female with no PMHx who present to the ED with 1 day history of voluminous diarrhea greater than 10 episodes. She has associated abdominal pain that is diffuse and nausea with vomiting and has not been able to hold down food today. It is interfering with her ability to care for her 7 children at home. She does not know anyone that has the same diarrheal illness and has been eating with her family. urine negative. Her potassium is 3.2, Mg 1.6, and Hb 10.[address] abdomen showed diffuse colitis. No fever, no leukocytosis. As was unable to take PO and could not control her pain she will be admitted for further care and workup of her diarrheal illness. Past Medical History Past Medical History Cardiovascular: No pertinent hx Pulmonary: No pertinent hx GI: No pertinent hx Heme/Onc: No pertinent hx Hepatobiliary: No pertinent hx Psych: No pertinent hx Rheumatologic: No pertinent hx Infectious disease: No pertinent hx ENT: No pertinent hx Renal/: No pertinent hx Endocrine: No pertinent hx Dermatology: No pertinent hx Grav: 7 Para: 7 Past Surgical History Past Surgical History: Tubal Ligation Social History Smoke: No ALCOHOL: none Drugs: None Current Medications Current Medications Current Medications Sodium Chloride 1,000 ml @ 1,000 mls/hr 1X ONCE IV Last administered on 03/28/19at 15:24; Start 03/28/19 at 15:30; Stop 03/28/19 at 16:29; Status DC Ondansetron HCl (Zofran) 4 mg 1X ONCE IV Last administered on 03/28/19at 15:24; Start 03/28/19 at 15:30; Stop 03/28/19 at 15:31; Status DC Morphine Sulfate (Morphine Sulfate) 4 mg 1X ONCE IV Last administered on 03/28/19at 15:25; Start 03/28/19 at 15:30; Stop 03/28/19 at 15:31; Status DC Ceftriaxone Sodium (Rocephin) 1 gm 1X ONCE IVP Last administered on 03/28/19at 17:27; Start 03/28/19 at 15:30; Stop 03/28/19 at 15:31; Status DC Potassium Chloride (Klor-Con) 40 meq 1X ONCE PO Last administered on 03/28/19at 17:28; Start 03/28/19 at 15:30; Stop 03/28/19 at 15:31; Status DC Iohexol (Omnipaque 300 Mg/ml) 75 ml 1X ONCE IV Last administered on 03/28/19at 16:11; Start 03/28/19 at 15:45; Stop 03/28/19 at 15:46; Status DC Info (CONTRAST GIVEN -- Rx MONITORING) 1 each PRN DAILY PRN MC SEE COMMENTS; Start 03/28/19 at 15:45; Stop 03/30/19 at 15:44 Ondansetron HCl (Zofran) 4 mg PRN Q8HRS PRN IV NAUSEA/VOMITING; Start 03/28/19 at 17:30; Stop 03/29/19 at 17:29 Morphine Sulfate (Morphine Sulfate) 4 mg PRN Q2HR PRN IV PAIN; Start 03/28/19 at 17:30; Stop 03/29/19 at 17:29 Sodium Chloride 1,000 ml @ 125 mls/hr Q8H IV ; Start 03/28/19 at 17:28; Stop 03/29/19 at 17:27 Active Scripts Active Pepcid (Famotidine) 20 Mg Tablet 20 Mg PO BID Keflex (Cephalexin) 500 Mg Capsule 1 Cap PO BID 7 Days Reglan (Metoclopramide Hcl) 10 Mg Tablet 1 Tab PO QID PRN Macrobid 100 Mg Capsule (Nitrofurantoin Monohyd/M-Cryst) 100 Mg Capsule 1 Cap PO BID Keflex (Cephalexin) 500 Mg Capsule 1 Cap PO BID Allergies Allergies: Coded Allergies: No Known Drug Allergies (Unverified , 05/24/18) ROS General: YES: Fatigue, Malaise, Appetite; No: Chills, Night Sweats, Other PSYCHOLOGICAL ROS: No: Anxiety, Behavioral Disorder, Concentration difficultie, Decreased libido, Depression, Disorientation, Hallucinations, Hostility, Irritablity, Memory difficulties, Mood Swings, Obsessive thoughts, Physical abuse, Sexual abuse, Sleep disturbances, Suicidal ideation, Other Eyes: No Blurry vision, No Decreased vision, No Double vision, No Dry eyes, No Excessive tearing, No Eye Pain, No Itchy Eyes, No Loss of vision, No Photophobia, No Scotomata, No Uses contacts, No Uses glasses, No Other HEENT: YES: Heacaches; No: Visual Changes, Hearing change, Nasal congestion, Nasal discharge, Oral lesions, Sinus pain, Sore Throat, Epistaxis, Sneezing, Snoring, Tinnitus, Vertigo, Vocal changes, Other ALLERGY AND IMMUNOLOGY: No: Hives, Insect Bite Sensitivity, Itchy/Watery Eyes, Nasal Congestion, Post Nasal Drip, Seasonal Allergies, Other Hematological and Lymphatic: No: Bleeding Problems, Blood Clots, Blood Transfusions, Brusing, Night Sweats, Pallor, Swollen Lymph Nodes, Other ENDOCRINE: No: Breast Changes, Galactorrhea, Hair Pattern Changes, Hot Flashes, Malaise/lethargy, Mood Swings, Palpitations, Polydipsia/polyuria, Skin Changes, Temperature Intolerance, Unexpected Weight Changes, Other Breast: No New/Changing Breast Lumps, No Nipple changes, No Nipple discharge, No Other Respiratory: No: Cough, Hemoptysis, Orthopnea, Pleuritic Pain, Shortness of breath, SOB with excertion, Sputum Changes, Stridor, Tachypnea, Wheezing, Other Cardiovascular: No Chest Pain, No Palpitations, No Orthopnea, No Paroxysmal Noc. Dyspnea, No Edema, No Lt Headedness, No Other Gastrointestinal: Yes Nausea, Yes Vomiting, Yes Abdominal Pain, Yes Diarrhea; No Constipation, No Melena, No Hematochezia, No Other Genitourinary: No Dysuria, No Frequency, No Incontinence, No Hematuria, No Retention, No Discharge, No Urgency, No Pain, No Flank Pain, No Other, No , No , No , No , No , No , No Musculoskeletal: No Gait Disturbance, No Joint Pain, No Joint Stiffness, No Joint Swelling, No Muscle Pain, No Muscular Weakness, No Pain In:, No Swelling In:, No Other Neurological: No Behavorial Changes, No Bowel/Bladder ControlChng, No Confusion, No Dizziness, No Gait Disturbance, No Headaches, No Impaired Coord/balance, No Memory Loss, No Numbness/Tingling, No Seizures, No Speech Problems, No Tremors, No Visual Changes, No Weakness, No Other Skin: No Dry Skin, No Eczema, No Hair Changes, No Lumps, No Mole Changes, No Mottling, No Nail Changes, No Pruritus, No Rash, No Skin Lesion Changes, No Other, No Acne Physical Exam General: Alert, Oriented X3, Cooperative, No acute distress HEENT: Atraumatic, PERRLA, EOMI, Mucous membr. moist/pink Lungs: Clear to auscultation, Normal air movement Heart: S1S2, RRR, no gallops, no murmurs Abdomen: Normal bowel sounds, Soft, No hepatosplenomegaly, No masses, Other (Diffuse tenderness) Rectal Exam: not examined Extremities: No clubbing, No cyanosis, No edema, Normal pulses, No tenderness/swelling Skin: No rashes, No breakdown, No significant lesion Neuro: Normal gait, Normal speech, Strength at 5/5 X4 ext, Normal tone, Sensation intact, Cranial nerves 3-12 NL, Reflexes 2+ Psych/Mental Status: Mental status NL, Mood NL Vitals Vitals Vital Signs Date Time Temp Pulse Resp B/P (MAP) Pulse Ox O2 Delivery O2 Flow Rate FiO2 03/28/19 14:05 99.0 109 20 117/78 (91) 98 Room Air 99.0 Labs Labs Laboratory Tests Test 03/28/19 14:11 03/28/19 14:15 03/28/19 14:16 Urine Collection Type Void Urine Color Leta Urine Clarity Cloudy Urine pH 5.5 Urine Specific [place] >=1.030 Urine Protein 100 mg/dL (NEG-TRACE) Urine Glucose (UA) Negative mg/dL (NEG) Urine Ketones (Stick) Trace mg/dL (NEG) Urine Blood Negative (NEG) Urine Nitrite Negative (NEG) Urine Bilirubin Negative (NEG) Urine Urobilinogen Dipstick 0.2 mg/dL (0.2 mg/dL) Urine Leukocyte Esterase Moderate (NEG) Urine RBC 0 /HPF (0-2) Urine WBC Tntc /HPF (0-4) Urine Squamous Epithelial Cells Many /LPF Urine Bacteria Moderate /HPF (0-FEW) Urine Mucus Slight /LPF White Blood Count 10.2 x10^3/uL (4.0-11.0) Red Blood Count 4.68 x10^6/uL (3.50-5.40) Hemoglobin 10.2 g/dL (12.0-15.5) Hematocrit 33.0 % (36.0-47.0) Mean Corpuscular Volume 71 fL (79-100) Mean Corpuscular Hemoglobin 22 pg (25-35) Mean Corpuscular Hemoglobin Concent 31 g/dL (31-37) Red Cell Distribution Width 17.5 % (11.5-14.5) Platelet Count 258 x10^3/uL (140-400) Neutrophils (%) (Auto) 90 % (31-73) Lymphocytes (%) (Auto) 7 % (24-48) Monocytes (%) (Auto) 3 % (0-9) Eosinophils (%) (Auto) 0 % (0-3) Basophils (%) (Auto) 0 % (0-3) Neutrophils # (Auto) 9.1 x10^3/uL (1.8-7.7) Lymphocytes # (Auto) 0.7 x10^3/uL (1.0-4.8) Monocytes # (Auto) 0.3 x10^3/uL (0.0-1.1) Eosinophils # (Auto) 0.0 x10^3/uL (0.0-0.7) Basophils # (Auto) 0.0 x10^3/uL (0.0-0.2) Segmented Neutrophils % 72 % (35-66) Band Neutrophils % 16 % (0-9) Lymphocytes % 10 % (24-48) Monocytes % 2 % (0-10) Platelet Estimate Adequate (ADEQUATE) Hypochromasia Slight Anisocytosis Slight Microcytosis Mod Sodium Level 140 mmol/L (136-145) Potassium Level 3.2 mmol/L (3.5-5.1) Chloride Level 100 mmol/L (98-107) Carbon Dioxide Level 26 mmol/L (21-32) Anion Gap 14 (6-14) Blood Urea Nitrogen 8 mg/dL (7-20) Creatinine 0.7 mg/dL (0.6-1.0) Estimated GFR (Cockcroft-Gault) 103.7 BUN/Creatinine Ratio 11 (6-20) Glucose Level 101 mg/dL (70-99) Calcium Level 9.0 mg/dL (8.5-10.1) Total Bilirubin 0.8 mg/dL (0.2-1.0) Aspartate Amino Transf (AST/SGOT) 26 U/L (15-37) Alanine Aminotransferase (ALT/SGPT) 34 U/L (14-59) Alkaline Phosphatase 78 U/L (46-116) Total Protein 8.9 g/dL (6.4-8.2) Albumin 4.2 g/dL (3.4-5.0) Albumin/Globulin Ratio 0.9 (1.0-1.7) Urine Opiates Screen Neg (NEG) Urine Methadone Screen Neg (NEG) Urine Barbiturates Neg (NEG) Urine Phencyclidine Screen Neg (NEG) Urine Amphetamine/Methamphetamine Neg (NEG) Urine Benzodiazepines Screen Neg (NEG) Urine Cocaine Screen Neg (NEG) Urine Cannabinoids Screen Neg (NEG) Urine Ethyl Alcohol Neg (NEG) Bedside Urine HCG, Qualitative Hcg negative (Negative) Laboratory Tests Test 03/28/19 14:11 03/28/19 14:15 03/28/19 14:16 Urine Collection Type Void Urine Color Leta Urine Clarity Cloudy Urine pH 5.5 Urine Specific [place] >=1.030 Urine Protein 100 mg/dL (NEG-TRACE) Urine Glucose (UA) Negative mg/dL (NEG) Urine Ketones (Stick) Trace mg/dL (NEG) Urine Blood Negative (NEG) Urine Nitrite Negative (NEG) Urine Bilirubin Negative (NEG) Urine Urobilinogen Dipstick 0.2 mg/dL (0.2 mg/dL) Urine Leukocyte Esterase Moderate (NEG) Urine RBC 0 /HPF (0-2) Urine WBC Tntc /HPF (0-4) Urine Squamous Epithelial Cells Many /LPF Urine Bacteria Moderate /HPF (0-FEW) Urine Mucus Slight /LPF White Blood Count 10.2 x10^3/uL (4.0-11.0) Red Blood Count 4.68 x10^6/uL (3.50-5.40) Hemoglobin 10.2 g/dL (12.0-15.5) Hematocrit 33.0 % (36.0-47.0) Mean Corpuscular Volume 71 fL (79-100) Mean Corpuscular Hemoglobin 22 pg (25-35) Mean Corpuscular Hemoglobin Concent 31 g/dL (31-37) Red Cell Distribution Width 17.5 % (11.5-14.5) Platelet Count 258 x10^3/uL (140-400) Neutrophils (%) (Auto) 90 % (31-73) Lymphocytes (%) (Auto) 7 % (24-48) Monocytes (%) (Auto) 3 % (0-9) Eosinophils (%) (Auto) 0 % (0-3) Basophils (%) (Auto) 0 % (0-3) Neutrophils # (Auto) 9.1 x10^3/uL (1.8-7.7) Lymphocytes # (Auto) 0.7 x10^3/uL (1.0-4.8) Monocytes # (Auto) 0.3 x10^3/uL (0.0-1.1) Eosinophils # (Auto) 0.0 x10^3/uL (0.0-0.7) Basophils # (Auto) 0.0 x10^3/uL (0.0-0.2) Segmented Neutrophils % 72 % (35-66) Band Neutrophils % 16 % (0-9) Lymphocytes % 10 % (24-48) Monocytes % 2 % (0-10) Platelet Estimate Adequate (ADEQUATE) Hypochromasia Slight Anisocytosis Slight Microcytosis Mod Sodium Level 140 mmol/L (136-145) Potassium Level 3.2 mmol/L (3.5-5.1) Chloride Level 100 mmol/L (98-107) Carbon Dioxide Level 26 mmol/L (21-32) Anion Gap 14 (6-14) Blood Urea Nitrogen 8 mg/dL (7-20) Creatinine 0.7 mg/dL (0.6-1.0) Estimated GFR (Cockcroft-Gault) 103.7 BUN/Creatinine Ratio 11 (6-20) Glucose Level 101 mg/dL (70-99) Calcium Level 9.0 mg/dL (8.5-10.1) Total Bilirubin 0.8 mg/dL (0.2-1.0) Aspartate Amino Transf (AST/SGOT) 26 U/L (15-37) Alanine Aminotransferase (ALT/SGPT) 34 U/L (14-59) Alkaline Phosphatase 78 U/L (46-116) Total Protein 8.9 g/dL (6.4-8.2) Albumin 4.2 g/dL (3.4-5.0) Albumin/Globulin Ratio 0.9 (1.0-1.7) Urine Opiates Screen Neg (NEG) Urine Methadone Screen Neg (NEG) Urine Barbiturates Neg (NEG) Urine Phencyclidine Screen Neg (NEG) Urine Amphetamine/Methamphetamine Neg (NEG) Urine Benzodiazepines Screen Neg (NEG) Urine Cocaine Screen Neg (NEG) Urine Cannabinoids Screen Neg (NEG) Urine Ethyl Alcohol Neg (NEG) Bedside Urine HCG, Qualitative Hcg negative (Negative) Images Images CT abdomen - 1. Diffuse colitis affecting the ascending, transverse and proximal descending colon. Findings may be infectious or inflammatory in etiology. No evidence for perforation or obstruction. 2. Normal-appearing appendix VTE Prophylaxis Ordered VTE Prophylaxis Devices: Yes VTE Pharmacological Prophylaxi: No Assessment/Plan Assessment/Plan A/P: Nausea/Vomiting/Diarrhea - likely viral gastroenteritis, has colitis on CT, no fevers. Will give IVF. IV anti-emetics until she can take PO Intractable Headache - toradol and compazine prn Hypokalemia - will replace PO if she can take it, IV if not Hypomagnesemia - will replace IV as she already has diarrhea. Colitis - on CT, confirmed with abdominal pain. IV toradol, morphine prn. Will obtain stool cultures. Hold off on antibiotics until then Iron deficiency anemia - will give IV venofer as she cannot handle oral iron at this time. Monitor FEN - General diet if she can tolerate PPX - ambulatory, low risk dvt FULL CODE Dispo - inpatient for intractable nausea and vomiting with gastroenteritis/ colitis unable to take PO LOVE DIAMOND MD Mar 28, 2019 18:01
[2019-03-28] MEDS: IV NORMAL SALINE 1000ML BAG 1,000 ML IV SCH (18:22)
[2019-03-28] MEDS: KETOROLAC 30 MG/ML VIAL. IV PRN (18:24)
[2019-03-28] MEDS: MORPHINE SULFATE 4 MG/ML VIAL. IV PRN ×2 (18:26→20:54)
--- NOTE | 2019-03-28 19:00 | NUR ---
The patient, SHAKEEL MORRISON, 23 y/o, F admitted by LOVE DIAMOND MD, was given written information regarding hospital policies, unit procedures and contact persons. Valuables were checked and left with patient. Patient oriented to room, call light in place. Pt comfortable and watching tv with family.
[2019-03-28 19:30] VITALS: BP 99/42
[2019-03-28] MEDS ORDERED: MAGNESIUM SULFATE 4GM 100 ML IV ONE (20:15)
[2019-03-28] MEDS ORDERED: PROCHLORPERAZINE 10 MG/2 ML VIAL. IV PRN (20:15)
[2019-03-28] MEDS ORDERED: IRON SUCROSE COMPLEX 200 MG in IV NORMAL SALINE 100ML 100 ML IV ONE (21:00)
[2019-03-28 23:04] VITALS: BP 93/43
[2019-03-29] MEDS ORDERED: INFLUENZA VAX SCREEN BY RX. MC PRN (00:15)
[2019-03-29] MEDS: KETOROLAC 30 MG/ML VIAL. IV PRN ×3 (00:49→19:28)
[2019-03-29] MEDS: IV NORMAL SALINE 1000ML BAG 1,000 ML IV SCH ×2 (01:28→09:28)
[2019-03-29 03:00] VITALS: BP 98/57
[2019-03-29 05:16] LABS: CALCIUM 8.4 mg/dL (8.5-10.1); CREATININE 0.7 mg/dL (0.6-1.0); GFR 103.7; POTASSIUM 3.4 mmol/L (3.5-5.1)
[2019-03-29] MEDS: MORPHINE SULFATE 4 MG/ML VIAL. IV PRN (06:40)
[2019-03-29 07:00] VITALS: BP 102/53
[2019-03-29] MEDS ORDERED: FLU VAX QS 2019-20 (36MOS+)/PF 0.5 ML SYRINGE. VAX IM ONE (09:00)
[2019-03-29 11:00] VITALS: BP 99/52
--- NOTE | 2019-03-29 11:12 | PDOC ---
PROGRESS NOTES History of Present Illness History of Present Illness Images Images CT abdomen - 1. Diffuse colitis affecting the ascending, transverse and proximal descending colon. Findings may be infectious or inflammatory in etiology. No evidence for perforation or obstruction. 2. Normal-appearing appendix VTE Prophylaxis Ordered VTE Prophylaxis Devices: Yes VTE Pharmacological Prophylaxi: No Assessment/Plan Nausea/Vomiting/Diarrhea - likely viral gastroenteritis, has colitis on CT, no fevers. DEHYDRATION SEC GI FLUID LOSS give IVF. IV anti-emetics Intractable Headache - toradol and compazine prn Hypokalemia - will replace Hypomagnesemia - will replace IV Colitis - on CT, confirmed with abdominal pain. IV toradol, morphine prn. esr =57 obtain stool cultures. Iron deficiency anemia - will give IV venofer as she cannot handle oral iron at this time. Monitor FEN - General diet if she can tolerate PPX - ambulatory, low risk dvt FULL CODE CONSULT GI Dispo - inpatient for intractable nausea and vomiting with gastroenteritis/colitis unable to take PO 28 min pt exam, chart review, > 50% of time spent with exam, chart review, pt care coordination Vitals Vitals Vital Signs Date Time Temp Pulse Resp B/P (MAP) Pulse Ox O2 Delivery O2 Flow Rate FiO2 03/29/19 07:10 Room Air 03/29/19 07:00 98.8 95 16 102/53 (69) 95 98.8 Physical Exam General: Alert, Oriented X3, Cooperative, No acute distress Heart: Regular rate, Normal S1, Normal S2 Lungs: Clear Abdomen: Normal bowel sounds, Soft, No hepatosplenomegaly, No masses, Other (Diffuse tenderness) Extremities: No clubbing, No cyanosis, No edema, Normal pulses, No tenderness/swelling Skin: No rashes, No breakdown, No significant lesion Labs LABS Laboratory Tests Test 03/28/19 14:11 03/28/19 14:15 03/28/19 14:16 03/29/19 04:15 Urine Collection Type Void Urine Color Leta Urine Clarity Cloudy Urine pH 5.5 Urine Specific [place] >=1.030 Urine Protein 100 mg/dL (NEG-TRACE) Urine Glucose (UA) Negative mg/dL (NEG) Urine Ketones (Stick) Trace mg/dL (NEG) Urine Blood Negative (NEG) Urine Nitrite Negative (NEG) Urine Bilirubin Negative (NEG) Urine Urobilinogen Dipstick 0.2 mg/dL (0.2 mg/dL) Urine Leukocyte Esterase Moderate (NEG) Urine RBC 0 /HPF (0-2) Urine WBC Tntc /HPF (0-4) Urine Squamous Epithelial Cells Many /LPF Urine Bacteria Moderate /HPF (0-FEW) Urine Mucus Slight /LPF White Blood Count 10.2 x10^3/uL (4.0-11.0) Red Blood Count 4.68 x10^6/uL (3.50-5.40) Hemoglobin 10.2 g/dL (12.0-15.5) Hematocrit 33.0 % (36.0-47.0) Mean Corpuscular Volume 71 fL (79-100) Mean Corpuscular Hemoglobin 22 pg (25-35) Mean Corpuscular Hemoglobin Concent 31 g/dL (31-37) Red Cell Distribution Width 17.5 % (11.5-14.5) Platelet Count 258 x10^3/uL (140-400) Neutrophils (%) (Auto) 90 % (31-73) Lymphocytes (%) (Auto) 7 % (24-48) Monocytes (%) (Auto) 3 % (0-9) Eosinophils (%) (Auto) 0 % (0-3) Basophils (%) (Auto) 0 % (0-3) Neutrophils # (Auto) 9.1 x10^3/uL (1.8-7.7) Lymphocytes # (Auto) 0.7 x10^3/uL (1.0-4.8) Monocytes # (Auto) 0.3 x10^3/uL (0.0-1.1) Eosinophils # (Auto) 0.0 x10^3/uL (0.0-0.7) Basophils # (Auto) 0.0 x10^3/uL (0.0-0.2) Segmented Neutrophils % 72 % (35-66) Band Neutrophils % 16 % (0-9) Lymphocytes % 10 % (24-48) Monocytes % 2 % (0-10) Platelet Estimate Adequate (ADEQUATE) Hypochromasia Slight Anisocytosis Slight Microcytosis Mod Sodium Level 140 mmol/L (136-145) 142 mmol/L (136-145) Potassium Level 3.2 mmol/L (3.5-5.1) 3.4 mmol/L (3.5-5.1) Chloride Level 100 mmol/L (98-107) 105 mmol/L (98-107) Carbon Dioxide Level 26 mmol/L (21-32) 26 mmol/L (21-32) Anion Gap 14 (6-14) 11 (6-14) Blood Urea Nitrogen 8 mg/dL (7-20) 6 mg/dL (7-20) Creatinine 0.7 mg/dL (0.6-1.0) 0.7 mg/dL (0.6-1.0) Estimated GFR (Cockcroft-Gault) 103.7 103.7 BUN/Creatinine Ratio 11 (6-20) Glucose Level 101 mg/dL (70-99) 98 mg/dL (70-99) Calcium Level 9.0 mg/dL (8.5-10.1) 8.4 mg/dL (8.5-10.1) Magnesium Level 1.6 mg/dL (1.8-2.4) Iron Level 8 ug/dL (50-170) Total Iron Binding Capacity 432 ug/dL (250-450) Iron Saturation 2 % (15-34) Total Bilirubin 0.8 mg/dL (0.2-1.0) Aspartate Amino Transf (AST/SGOT) 26 U/L (15-37) Alanine Aminotransferase (ALT/SGPT) 34 U/L (14-59) Alkaline Phosphatase 78 U/L (46-116) Total Protein 8.9 g/dL (6.4-8.2) Albumin 4.2 g/dL (3.4-5.0) Albumin/Globulin Ratio 0.9 (1.0-1.7) Urine Opiates Screen Neg (NEG) Urine Methadone Screen Neg (NEG) Urine Barbiturates Neg (NEG) Urine Phencyclidine Screen Neg (NEG) Urine Amphetamine/Methamphetamine Neg (NEG) Urine Benzodiazepines Screen Neg (NEG) Urine Cocaine Screen Neg (NEG) Urine Cannabinoids Screen Neg (NEG) Urine Ethyl Alcohol Neg (NEG) Bedside Urine HCG, Qualitative Hcg negative (Negative) Assessment and Plan Assessmemt and Plan Problems Medical Problems: (1) Colitis Status: Acute Comment Review of Relevant I have reviewed the following items ashu (where applicable) has been applied. Labs Laboratory Tests Test 03/28/19 14:11 03/28/19 14:15 03/28/19 14:16 03/29/19 04:15 Urine Collection Type Void Urine Color Leta Urine Clarity Cloudy Urine pH 5.5 Urine Specific [place] >=1.030 Urine Protein 100 mg/dL (NEG-TRACE) Urine Glucose (UA) Negative mg/dL (NEG) Urine Ketones (Stick) Trace mg/dL (NEG) Urine Blood Negative (NEG) Urine Nitrite Negative (NEG) Urine Bilirubin Negative (NEG) Urine Urobilinogen Dipstick 0.2 mg/dL (0.2 mg/dL) Urine Leukocyte Esterase Moderate (NEG) Urine RBC 0 /HPF (0-2) Urine WBC Tntc /HPF (0-4) Urine Squamous Epithelial Cells Many /LPF Urine Bacteria Moderate /HPF (0-FEW) Urine Mucus Slight /LPF White Blood Count 10.2 x10^3/uL (4.0-11.0) Red Blood Count 4.68 x10^6/uL (3.50-5.40) Hemoglobin 10.2 g/dL (12.0-15.5) Hematocrit 33.0 % (36.0-47.0) Mean Corpuscular Volume 71 fL (79-100) Mean Corpuscular Hemoglobin 22 pg (25-35) Mean Corpuscular Hemoglobin Concent 31 g/dL (31-37) Red Cell Distribution Width 17.5 % (11.5-14.5) Platelet Count 258 x10^3/uL (140-400) Neutrophils (%) (Auto) 90 % (31-73) Lymphocytes (%) (Auto) 7 % (24-48) Monocytes (%) (Auto) 3 % (0-9) Eosinophils (%) (Auto) 0 % (0-3) Basophils (%) (Auto) 0 % (0-3) Neutrophils # (Auto) 9.1 x10^3/uL (1.8-7.7) Lymphocytes # (Auto) 0.7 x10^3/uL (1.0-4.8) Monocytes # (Auto) 0.3 x10^3/uL (0.0-1.1) Eosinophils # (Auto) 0.0 x10^3/uL (0.0-0.7) Basophils # (Auto) 0.0 x10^3/uL (0.0-0.2) Segmented Neutrophils % 72 % (35-66) Band Neutrophils % 16 % (0-9) Lymphocytes % 10 % (24-48) Monocytes % 2 % (0-10) Platelet Estimate Adequate (ADEQUATE) Hypochromasia Slight Anisocytosis Slight Microcytosis Mod Sodium Level 140 mmol/L (136-145) 142 mmol/L (136-145) Potassium Level 3.2 mmol/L (3.5-5.1) 3.4 mmol/L (3.5-5.1) Chloride Level 100 mmol/L (98-107) 105 mmol/L (98-107) Carbon Dioxide Level 26 mmol/L (21-32) 26 mmol/L (21-32) Anion Gap 14 (6-14) 11 (6-14) Blood Urea Nitrogen 8 mg/dL (7-20) 6 mg/dL (7-20) Creatinine 0.7 mg/dL (0.6-1.0) 0.7 mg/dL (0.6-1.0) Estimated GFR (Cockcroft-Gault) 103.7 103.7 BUN/Creatinine Ratio 11 (6-20) Glucose Level 101 mg/dL (70-99) 98 mg/dL (70-99) Calcium Level 9.0 mg/dL (8.5-10.1) 8.4 mg/dL (8.5-10.1) Magnesium Level 1.6 mg/dL (1.8-2.4) Iron Level 8 ug/dL (50-170) Total Iron Binding Capacity 432 ug/dL (250-450) Iron Saturation 2 % (15-34) Total Bilirubin 0.8 mg/dL (0.2-1.0) Aspartate Amino Transf (AST/SGOT) 26 U/L (15-37) Alanine Aminotransferase (ALT/SGPT) 34 U/L (14-59) Alkaline Phosphatase 78 U/L (46-116) Total Protein 8.9 g/dL (6.4-8.2) Albumin 4.2 g/dL (3.4-5.0) Albumin/Globulin Ratio 0.9 (1.0-1.7) Urine Opiates Screen Neg (NEG) Urine Methadone Screen Neg (NEG) Urine Barbiturates Neg (NEG) Urine Phencyclidine Screen Neg (NEG) Urine Amphetamine/Methamphetamine Neg (NEG) Urine Benzodiazepines Screen Neg (NEG) Urine Cocaine Screen Neg (NEG) Urine Cannabinoids Screen Neg (NEG) Urine Ethyl Alcohol Neg (NEG) Bedside Urine HCG, Qualitative Hcg negative (Negative) Laboratory Tests Test 03/28/19 14:11 03/28/19 14:15 03/28/19 14:16 03/29/19 04:15 Urine Collection Type Void Urine Color Leta Urine Clarity Cloudy Urine pH 5.5 Urine Specific [place] >=1.030 Urine Protein 100 mg/dL (NEG-TRACE) Urine Glucose (UA) Negative mg/dL (NEG) Urine Ketones (Stick) Trace mg/dL (NEG) Urine Blood Negative (NEG) Urine Nitrite Negative (NEG) Urine Bilirubin Negative (NEG) Urine Urobilinogen Dipstick 0.2 mg/dL (0.2 mg/dL) Urine Leukocyte Esterase Moderate (NEG) Urine RBC 0 /HPF (0-2) Urine WBC Tntc /HPF (0-4) Urine Squamous Epithelial Cells Many /LPF Urine Bacteria Moderate /HPF (0-FEW) Urine Mucus Slight /LPF White Blood Count 10.2 x10^3/uL (4.0-11.0) Red Blood Count 4.68 x10^6/uL (3.50-5.40) Hemoglobin 10.2 g/dL (12.0-15.5) Hematocrit 33.0 % (36.0-47.0) Mean Corpuscular Volume 71 fL (79-100) Mean Corpuscular Hemoglobin 22 pg (25-35) Mean Corpuscular Hemoglobin Concent 31 g/dL (31-37) Red Cell Distribution Width 17.5 % (11.5-14.5) Platelet Count 258 x10^3/uL (140-400) Neutrophils (%) (Auto) 90 % (31-73) Lymphocytes (%) (Auto) 7 % (24-48) Monocytes (%) (Auto) 3 % (0-9) Eosinophils (%) (Auto) 0 % (0-3) Basophils (%) (Auto) 0 % (0-3) Neutrophils # (Auto) 9.1 x10^3/uL (1.8-7.7) Lymphocytes # (Auto) 0.7 x10^3/uL (1.0-4.8) Monocytes # (Auto) 0.3 x10^3/uL (0.0-1.1) Eosinophils # (Auto) 0.0 x10^3/uL (0.0-0.7) Basophils # (Auto) 0.0 x10^3/uL (0.0-0.2) Segmented Neutrophils % 72 % (35-66) Band Neutrophils % 16 % (0-9) Lymphocytes % 10 % (24-48) Monocytes % 2 % (0-10) Platelet Estimate Adequate (ADEQUATE) Hypochromasia Slight Anisocytosis Slight Microcytosis Mod Sodium Level 140 mmol/L (136-145) 142 mmol/L (136-145) Potassium Level 3.2 mmol/L (3.5-5.1) 3.4 mmol/L (3.5-5.1) Chloride Level 100 mmol/L (98-107) 105 mmol/L (98-107) Carbon Dioxide Level 26 mmol/L (21-32) 26 mmol/L (21-32) Anion Gap 14 (6-14) 11 (6-14) Blood Urea Nitrogen 8 mg/dL (7-20) 6 mg/dL (7-20) Creatinine 0.7 mg/dL (0.6-1.0) 0.7 mg/dL (0.6-1.0) Estimated GFR (Cockcroft-Gault) 103.7 103.7 BUN/Creatinine Ratio 11 (6-20) Glucose Level 101 mg/dL (70-99) 98 mg/dL (70-99) Calcium Level 9.0 mg/dL (8.5-10.1) 8.4 mg/dL (8.5-10.1) Magnesium Level 1.6 mg/dL (1.8-2.4) Iron Level 8 ug/dL (50-170) Total Iron Binding Capacity 432 ug/dL (250-450) Iron Saturation 2 % (15-34) Total Bilirubin 0.8 mg/dL (0.2-1.0) Aspartate Amino Transf (AST/SGOT) 26 U/L (15-37) Alanine Aminotransferase (ALT/SGPT) 34 U/L (14-59) Alkaline Phosphatase 78 U/L (46-116) Total Protein 8.9 g/dL (6.4-8.2) Albumin 4.2 g/dL (3.4-5.0) Albumin/Globulin Ratio 0.9 (1.0-1.7) Urine Opiates Screen Neg (NEG) Urine Methadone Screen Neg (NEG) Urine Barbiturates Neg (NEG) Urine Phencyclidine Screen Neg (NEG) Urine Amphetamine/Methamphetamine Neg (NEG) Urine Benzodiazepines Screen Neg (NEG) Urine Cocaine Screen Neg (NEG) Urine Cannabinoids Screen Neg (NEG) Urine Ethyl Alcohol Neg (NEG) Bedside Urine HCG, Qualitative Hcg negative (Negative) Microbiology 03/29/19 Fecal Leukocyte Stain - Final, Complete Medications Current Medications Sodium Chloride 1,000 ml @ 1,000 mls/hr 1X ONCE IV Last administered on 03/28/19at 15:24; Start 03/28/19 at 15:30; Stop 03/28/19 at 16:29; Status DC Ondansetron HCl (Zofran) 4 mg 1X ONCE IV Last administered on 03/28/19at 15:24; Start 03/28/19 at 15:30; Stop 03/28/19 at 15:31; Status DC Morphine Sulfate (Morphine Sulfate) 4 mg 1X ONCE IV Last administered on 03/28/19at 15:25; Start 03/28/19 at 15:30; Stop 03/28/19 at 15:31; Status DC Ceftriaxone Sodium (Rocephin) 1 gm 1X ONCE IVP Last administered on 03/28/19at 17:27; Start 03/28/19 at 15:30; Stop 03/28/19 at 15:31; Status DC Potassium Chloride (Klor-Con) 40 meq 1X ONCE PO Last administered on 03/28/19at 17:28; Start 03/28/19 at 15:30; Stop 03/28/19 at 15:31; Status DC Iohexol (Omnipaque 300 Mg/ml) 75 ml 1X ONCE IV Last administered on 03/28/19at 16:11; Start 03/28/19 at 15:45; Stop 03/28/19 at 15:46; Status DC Info (CONTRAST GIVEN -- Rx MONITORING) 1 each PRN DAILY PRN MC SEE COMMENTS; Start 03/28/19 at 15:45; Stop 03/30/19 at 15:44 Ondansetron HCl (Zofran) 4 mg PRN Q8HRS PRN IV NAUSEA/VOMITING; Start 03/28/19 at 17:30; Stop 03/28/19 at 18:01; Status DC Morphine Sulfate (Morphine Sulfate) 4 mg PRN Q2HR PRN IV PAIN Last administered on 03/29/19at 06:40; Start 03/28/19 at 17:30; Stop 03/29/19 at 17:29 Sodium Chloride 1,000 ml @ 125 mls/hr Q8H IV Last administered on 03/29/19at 01:28; Start 03/28/19 at 17:28; Stop 03/29/19 at 17:27 Ondansetron HCl (Zofran) 4 mg PRN Q6HRS PRN IV NAUSEA/VOMITING; Start 03/28/19 at 18:00 Ketorolac Tromethamine (Toradol 30mg Vial) 30 mg PRN Q6HRS PRN IV PAIN Last administered on 03/29/19at 10:18; Start 03/28/19 at 18:00; Stop 04/02/19 at 17:59 Prochlorperazine Edisylate (Compazine) 10 mg PRN Q6HRS PRN IV HEADACHE/NAUSEA/VOMITING; Start 03/28/19 at 20:15 Magnesium Sulfate 100 ml @ 25 mls/hr 1X ONCE IV Last administered on 03/28/19at 20:53; Start 03/28/19 at 20:15; Stop 03/29/19 at 00:14; Status DC Iron Sucrose 200 mg/Sodium Chloride 110 ml @ 55 mls/hr 1X ONCE IV Last administered on 03/28/19at 20:53; Start 03/28/19 at 21:00; Stop 03/28/19 at 22:59; Status DC Influenza Virus Vaccine Quadrival (Afluria Quad 2019-20 (3yr Up) Syringe) 0.5 ml ONCE ONCE VAX IM Last administered on 03/29/19at 10:23; Start 03/29/19 at 09:00; Stop 03/29/19 at 09:01; Status DC Info (FLU VACCINE SCREEN per RX) 1 each PRN 1X PRN MC SEE COMMENTS; Start 03/29/19 at 00:15; Status Cancel Active Scripts Active Pepcid (Famotidine) 20 Mg Tablet 20 Mg PO BID Keflex (Cephalexin) 500 Mg Capsule 1 Cap PO BID 7 Days Reglan (Metoclopramide Hcl) 10 Mg Tablet 1 Tab PO QID PRN Macrobid 100 Mg Capsule (Nitrofurantoin Monohyd/M-Cryst) 100 Mg Capsule 1 Cap PO BID Keflex (Cephalexin) 500 Mg Capsule 1 Cap PO BID Vitals/I & O Vital Sign - Last 24 Hours 03/28/19 03/28/19 03/28/19 03/28/19 14:05 15:00 16:00 17:00 Temp 99.0 99.0 Pulse 109 92 101 93 Resp 20 18 18 20 B/P (MAP) 117/78 (91) 110/62 (78) 104/61 (75) 106/60 (75) Pulse Ox 98 99 99 99 O2 Delivery Room Air Room Air Room Air Room Air 03/28/19 03/28/19 03/28/19 03/28/19 17:58 19:00 19:30 19:30 Temp 99.8 99.8 99.8 99.8 Pulse 98 80 80 Resp 18 18 18 B/P (MAP) 103/58 (73) 99/42 (61) 99/42 (61) Pulse Ox 99 97 97 O2 Delivery Room Air Room Air Room Air Room Air 03/28/19 03/28/19 03/28/19 03/28/19 20:00 20:54 21:30 23:04 Temp 98.1 98.1 Pulse 76 Resp 15 B/P (MAP) 93/43 (60) Pulse Ox 97 O2 Delivery Room Air Room Air Room Air Room Air 03/29/19 03/29/19 03/29/19 03/29/19 03:00 06:40 07:00 07:10 Temp 99.6 98.8 99.6 98.8 Pulse 77 95 Resp 15 16 B/P (MAP) 98/57 (71) 102/53 (69) Pulse Ox 97 95 O2 Delivery Room Air Room Air Room Air Room Air Intake and Output 03/28/19 03/28/19 03/29/19 15:00 23:00 07:00 Intake Total 1000 ml 110 ml Balance 1000 ml 110 ml NEGAR LATIF MD Mar 29, 2019 11:12
--- NOTE | 2019-03-29 12:42 | PDOC2 ---
GI CONSULT Reason For Consult: Acute colitis HPI: HPI: 23 y/o female admitted yesterday through ER. Ill since after eating at a [place] restaurant - began first with vomiting, then sharp lower abdominal pain (also to right mid abdomen when she raised her right arm) and diarrhea (too many times to count - kept her awake at night). Had a fever at home. Last vomited and stooled yesterday. Pain is better. Denies reflux/heartburn, dysphagia, hematemesis, constipation, hematochezia, and melena. No chronic GI issues. No previous EGD or colonoscopy. No GB, liver, pancreas, or PUD history. No NSAIDs. No recent antibiotic use or travel. In ER last month - she says she came for ongoing vaginal bleeding since giving 5 months ago, notes indicate was evaluated for chest pain. She says she was told she could have acid reflux - was provided w/ Rx for famotidine which she did not fill because she didn't think she needed it. No chest pain currently. Noted w/ ANA - s/p iron infusion. Has reported dizziness w/ standing to nurse. PMH: PMH: anxiety tubal ligation FH: Family History: Other (doesn't really know her family) Social History: Smoke: Quit ALCOHOL: none Drugs: None ROS: GEN: +fever HEENT: Denies blurred vision, sore throat CV: Denies chest pain RESP: Denies shortness of air, cough GI: Per HPI : Denies hematuria, dysuria ENDO: Denies weight changes NEURO: Denies confusion, dizziness MSK: Denies weakness, joint pain/swelling SKIN: Denies jaundice, pruritus Vitals: Vitals: Vital Signs Date Time Temp Pulse Resp B/P (MAP) Pulse Ox O2 Delivery O2 Flow Rate FiO2 03/29/19 11:00 98.4 87 17 99/52 (68) 94 Room Air 98.4 Labs: Labs: Laboratory Tests Test 03/28/19 14:11 03/28/19 14:15 03/28/19 14:16 03/29/19 04:15 Urine Collection Type Void Urine Color Leta Urine Clarity Cloudy Urine pH 5.5 Urine Specific [place] >=1.030 Urine Protein 100 mg/dL (NEG-TRACE) Urine Glucose (UA) Negative mg/dL (NEG) Urine Ketones (Stick) Trace mg/dL (NEG) Urine Blood Negative (NEG) Urine Nitrite Negative (NEG) Urine Bilirubin Negative (NEG) Urine Urobilinogen Dipstick 0.2 mg/dL (0.2 mg/dL) Urine Leukocyte Esterase Moderate (NEG) Urine RBC 0 /HPF (0-2) Urine WBC Tntc /HPF (0-4) Urine Squamous Epithelial Cells Many /LPF Urine Bacteria Moderate /HPF (0-FEW) Urine Mucus Slight /LPF White Blood Count 10.2 x10^3/uL (4.0-11.0) Red Blood Count 4.68 x10^6/uL (3.50-5.40) Hemoglobin 10.2 g/dL (12.0-15.5) Hematocrit 33.0 % (36.0-47.0) Mean Corpuscular Volume 71 fL (79-100) Mean Corpuscular Hemoglobin 22 pg (25-35) Mean Corpuscular Hemoglobin Concent 31 g/dL (31-37) Red Cell Distribution Width 17.5 % (11.5-14.5) Platelet Count 258 x10^3/uL (140-400) Neutrophils (%) (Auto) 90 % (31-73) Lymphocytes (%) (Auto) 7 % (24-48) Monocytes (%) (Auto) 3 % (0-9) Eosinophils (%) (Auto) 0 % (0-3) Basophils (%) (Auto) 0 % (0-3) Neutrophils # (Auto) 9.1 x10^3/uL (1.8-7.7) Lymphocytes # (Auto) 0.7 x10^3/uL (1.0-4.8) Monocytes # (Auto) 0.3 x10^3/uL (0.0-1.1) Eosinophils # (Auto) 0.0 x10^3/uL (0.0-0.7) Basophils # (Auto) 0.0 x10^3/uL (0.0-0.2) Segmented Neutrophils % 72 % (35-66) Band Neutrophils % 16 % (0-9) Lymphocytes % 10 % (24-48) Monocytes % 2 % (0-10) Platelet Estimate Adequate (ADEQUATE) Hypochromasia Slight Anisocytosis Slight Microcytosis Mod Sodium Level 140 mmol/L (136-145) 142 mmol/L (136-145) Potassium Level 3.2 mmol/L (3.5-5.1) 3.4 mmol/L (3.5-5.1) Chloride Level 100 mmol/L (98-107) 105 mmol/L (98-107) Carbon Dioxide Level 26 mmol/L (21-32) 26 mmol/L (21-32) Anion Gap 14 (6-14) 11 (6-14) Blood Urea Nitrogen 8 mg/dL (7-20) 6 mg/dL (7-20) Creatinine 0.7 mg/dL (0.6-1.0) 0.7 mg/dL (0.6-1.0) Estimated GFR (Cockcroft-Gault) 103.7 103.7 BUN/Creatinine Ratio 11 (6-20) Glucose Level 101 mg/dL (70-99) 98 mg/dL (70-99) Calcium Level 9.0 mg/dL (8.5-10.1) 8.4 mg/dL (8.5-10.1) Magnesium Level 1.6 mg/dL (1.8-2.4) Iron Level 8 ug/dL (50-170) Total Iron Binding Capacity 432 ug/dL (250-450) Iron Saturation 2 % (15-34) Total Bilirubin 0.8 mg/dL (0.2-1.0) Aspartate Amino Transf (AST/SGOT) 26 U/L (15-37) Alanine Aminotransferase (ALT/SGPT) 34 U/L (14-59) Alkaline Phosphatase 78 U/L (46-116) Total Protein 8.9 g/dL (6.4-8.2) Albumin 4.2 g/dL (3.4-5.0) Albumin/Globulin Ratio 0.9 (1.0-1.7) Urine Opiates Screen Neg (NEG) Urine Methadone Screen Neg (NEG) Urine Barbiturates Neg (NEG) Urine Phencyclidine Screen Neg (NEG) Urine Amphetamine/Methamphetamine Neg (NEG) Urine Benzodiazepines Screen Neg (NEG) Urine Cocaine Screen Neg (NEG) Urine Cannabinoids Screen Neg (NEG) Urine Ethyl Alcohol Neg (NEG) Bedside Urine HCG, Qualitative Hcg negative (Negative) FECAL WBC,GRAM STAIN Final WBCS FEW Allergies: Coded Allergies: No Known Drug Allergies (Unverified , 05/24/18) Medications: Current Medications Medications (Trade) Dose Ordered Sig/Lele Route PRN Reason Start Time Stop Time Status Last Admin Dose Admin Sodium Chloride 1,000 ml @ 1,000 mls/hr 1X ONCE IV 03/28/19 15:30 03/28/19 16:29 DC 03/28/19 15:24 Ondansetron HCl (Zofran) 4 mg 1X ONCE IV 03/28/19 15:30 03/28/19 15:31 DC 03/28/19 15:24 Morphine Sulfate (Morphine Sulfate) 4 mg 1X ONCE IV 03/28/19 15:30 03/28/19 15:31 DC 03/28/19 15:25 Ceftriaxone Sodium (Rocephin) 1 gm 1X ONCE IVP 03/28/19 15:30 03/28/19 15:31 DC 03/28/19 17:27 Potassium Chloride (Klor-Con) 40 meq 1X ONCE PO 03/28/19 15:30 03/28/19 15:31 DC 03/28/19 17:28 Iohexol (Omnipaque 300 Mg/ml) 75 ml 1X ONCE IV 03/28/19 15:45 03/28/19 15:46 DC 03/28/19 16:11 Morphine Sulfate (Morphine Sulfate) 4 mg PRN Q2HR PRN IV PAIN 03/28/19 17:30 03/29/19 17:29 03/29/19 06:40 Sodium Chloride 1,000 ml @ 125 mls/hr Q8H IV 03/28/19 17:28 03/29/19 17:27 03/29/19 01:28 Ketorolac Tromethamine (Toradol 30mg Vial) 30 mg PRN Q6HRS PRN IV PAIN 03/28/19 18:00 04/02/19 17:59 03/29/19 10:18 Magnesium Sulfate 100 ml @ 25 mls/hr 1X ONCE IV 03/28/19 20:15 03/29/19 00:14 DC 03/28/19 20:53 Iron Sucrose 200 mg/Sodium Chloride 110 ml @ 55 mls/hr 1X ONCE IV 03/28/19 21:00 03/28/19 22:59 DC 03/28/19 20:53 Influenza Virus Vaccine Quadrival (Afluria Quad 2019-20 (3yr Up) Syringe) 0.5 ml ONCE ONCE VAX IM 03/29/19 09:00 03/29/19 09:01 DC 03/29/19 10:23 Imaging: Imaging: CT A/P w/ IV contrast FINDINGS: Heart size is normal. No pericardial effusion. Visualized lung bases are clear. No pleural effusion. Liver, spleen, pancreas, gallbladder and adrenals are unremarkable. Kidneys demonstrate symmetric enhancement. No perinephric inflammation or hydronephrosis. Bladder is decompressed not well evaluated. Uterus is not enlarged. No abnormal adnexal mass. Wall thickening with submucosal edema is present throughout the ascending, transverse and proximal descending transverse colon. Appendix is normal. Remainder of the large and small bowel are unremarkable. No obstruction. No free intra-abdominal air or fluid. Abdominal aorta has a normal course and caliber. Abdominal vasculature is patent. No enlarged abdominal lymph nodes are identified. No suspicious osseous lesions or acute fractures. IMPRESSION: 1. Diffuse colitis affecting the ascending, transverse and proximal descending colon. Findings may be infectious or inflammatory in etiology. No evidence for perforation or obstruction. 2. Normal-appearing appendix PE: GEN: NAD HEENT: Atraumatic, PERRL LUNGS: CTAB HEART: RRR ABD: NABS, S/ND, lower abdomen is "sore" - nonspecific EXTREMITY: No edema SKIN: No rashes, no jaundice NEURO/PSYCH: A & O �3 A/P: A/P: Vomiting, lower abd/right-sided pain, diarrhea, fever - improved; began after eating at a restaurant ANA - s/p iron infusion - reports vaginal bleeding x 5 months since son was born Hypokalemia, hypomagnesemia, ?UTI Abnormal CT - diffuse colitis affecting the ascending, transverse and proximal descending colon CRC screen - average risk -- Try clears, ADAT. Has C Diff, stool culture, and O&P ordered - await these. Add PPI w/ recent vomiting and questionable h/o atypical chest pain. EMY PEREIRA Mar 29, 2019 12:42
[2019-03-29] MEDS: PANTOPRAZOLE 40 MG TABLET.DR. PO SCH (14:49)
--- NOTE | 2019-03-29 14:50 | NUR ---
SW following pt for dc planning. Chart reviewed. Pt lives at home with spouse. GI following. No SW needs at this time. Will continue to follow as needed.
[2019-03-29 15:00] VITALS: BP 102/58
[2019-03-29 19:00] VITALS: BP 101/54
[2019-03-29 23:00] VITALS: BP 98/46
[2019-03-30 03:00] VITALS: BP 107/60
[2019-03-30 04:52] LABS: BASO % 1 % (0-3); EOS # 0.1 x10^3/uL (0.0-0.7); EOS % 3 % (0-3); HEMATOCRIT 23.9 % (36.0-47.0); HEMOGLOBIN 7.6 g/dL (12.0-15.5); LYMPH # 1.2 x10^3/uL (1.0-4.8); LYMPH % 32 % (24-48); MEAN CORPUSCULAR HEMOGLOBIN 22 pg (25-35); MEAN CORPUSCULAR HGB CONC 32 g/dL (31-37); MEAN CORPUSCULAR VOLUME 70 fL (79-100); MONO # 0.2 x10^3/uL (0.0-1.1); MONO % 6 % (0-9); NEUT # 2.1 x10^3/uL (1.8-7.7); NEUT % 58 % (31-73); PLATELET COUNT 192 x10^3/uL (140-400); RED BLOOD COUNT 3.42 x10^6/uL (3.50-5.40); WHITE BLOOD COUNT 3.7 x10^3/uL (4.0-11.0)
[2019-03-30 05:07] LABS: ALBUMIN 2.9 g/dL (3.4-5.0); ALBUMIN/GLOBULIN RATIO 0.8 (1.0-1.7); CALCIUM 8.3 mg/dL (8.5-10.1); CREATININE 0.5 mg/dL (0.6-1.0); GFR 152.9; POTASSIUM 3.3 mmol/L (3.5-5.1); TOTAL BILIRUBIN 0.1 mg/dL (0.2-1.0); TOTAL PROTEIN 6.5 g/dL (6.4-8.2)
[2019-03-30 07:00] VITALS: BP 112/56
[2019-03-30] MEDS: PANTOPRAZOLE 40 MG TABLET.DR. PO SCH (09:14)
[2019-03-30] MEDS: ACETAMINOPHEN 325 MG TABLET. PO PRN (10:25)
--- NOTE | 2019-03-30 10:51 | PDOC ---
PROGRESS NOTES History of Present Illness History of Present Illness Images Images CT abdomen - 1. Diffuse colitis affecting the ascending, transverse and proximal descending colon. Findings may be infectious or inflammatory in etiology. No evidence for perforation or obstruction. 2. Normal-appearing appendix VTE Prophylaxis Ordered VTE Prophylaxis Devices: Yes VTE Pharmacological Prophylaxi: No Assessment/Plan Nausea/Vomiting/Diarrhea - likely viral gastroenteritis, has colitis on CT, no fevers. DEHYDRATION SEC GI FLUID LOSS give IVF. IV anti-emetics Intractable Headache - toradol and compazine prn Hypokalemia - will replace PO Hypomagnesemia - will replace IV Colitis - on CT, confirmed with abdominal pain. IV toradol, morphine prn. esr =57 VAGINAL BLEEDING BY HX obtain stool cultures. Iron deficiency anemia - will give IV venofer as she cannot handle oral iron at this time. Monitor FEN - General diet if she can tolerate PPX - ambulatory, low risk dvt FULL CODE CONSULT GI CONSULT [facility] [employer] [facility]ONO Dispo - inpatient for intractable nausea and vomiting with gastroenteritis/colitis unable to take PO 38 min pt exam, chart review, > 50% of time spent with exam, chart review, pt care coordination Vitals Vitals Vital Signs Date Time Temp Pulse Resp B/P (MAP) Pulse Ox O2 Delivery O2 Flow Rate FiO2 03/30/19 07:00 97.8 65 16 112/56 (74) 96 Room Air 97.8 Physical Exam General: Alert, Oriented X3, Cooperative, No acute distress Heart: Regular rate, Normal S1, Normal S2 Lungs: Clear Abdomen: Normal bowel sounds, Soft, No tenderness, No hepatosplenomegaly, No masses, Other (Diffuse tenderness) Extremities: No clubbing, No cyanosis, No edema, Normal pulses, No tenderness/swelling Skin: No rashes, No breakdown, No significant lesion Labs LABS Laboratory Tests Test 03/29/19 13:35 03/30/19 03:57 Erythrocyte Sedimentation Rate 57 (0-25) White Blood Count 3.7 x10^3/uL (4.0-11.0) Red Blood Count 3.42 x10^6/uL (3.50-5.40) Hemoglobin 7.6 g/dL (12.0-15.5) Hematocrit 23.9 % (36.0-47.0) Mean Corpuscular Volume 70 fL (79-100) Mean Corpuscular Hemoglobin 22 pg (25-35) Mean Corpuscular Hemoglobin Concent 32 g/dL (31-37) Red Cell Distribution Width 17.0 % (11.5-14.5) Platelet Count 192 x10^3/uL (140-400) Neutrophils (%) (Auto) 58 % (31-73) Lymphocytes (%) (Auto) 32 % (24-48) Monocytes (%) (Auto) 6 % (0-9) Eosinophils (%) (Auto) 3 % (0-3) Basophils (%) (Auto) 1 % (0-3) Neutrophils # (Auto) 2.1 x10^3/uL (1.8-7.7) Lymphocytes # (Auto) 1.2 x10^3/uL (1.0-4.8) Monocytes # (Auto) 0.2 x10^3/uL (0.0-1.1) Eosinophils # (Auto) 0.1 x10^3/uL (0.0-0.7) Basophils # (Auto) 0.0 x10^3/uL (0.0-0.2) Sodium Level 146 mmol/L (136-145) Potassium Level 3.3 mmol/L (3.5-5.1) Chloride Level 111 mmol/L (98-107) Carbon Dioxide Level 26 mmol/L (21-32) Anion Gap 9 (6-14) Blood Urea Nitrogen 8 mg/dL (7-20) Creatinine 0.5 mg/dL (0.6-1.0) Estimated GFR (Cockcroft-Gault) 152.9 BUN/Creatinine Ratio 16 (6-20) Glucose Level 115 mg/dL (70-99) Calcium Level 8.3 mg/dL (8.5-10.1) Total Bilirubin 0.1 mg/dL (0.2-1.0) Aspartate Amino Transf (AST/SGOT) 20 U/L (15-37) Alanine Aminotransferase (ALT/SGPT) 26 U/L (14-59) Alkaline Phosphatase 61 U/L (46-116) Total Protein 6.5 g/dL (6.4-8.2) Albumin 2.9 g/dL (3.4-5.0) Albumin/Globulin Ratio 0.8 (1.0-1.7) Assessment and Plan Assessmemt and Plan Problems Medical Problems: (1) Colitis Status: Acute Comment Review of Relevant I have reviewed the following items ashu (where applicable) has been applied. Labs Laboratory Tests Test 03/28/19 14:11 03/28/19 14:15 03/28/19 14:16 03/29/19 04:15 Urine Collection Type Void Urine Color Leta Urine Clarity Cloudy Urine pH 5.5 Urine Specific [place] >=1.030 Urine Protein 100 mg/dL (NEG-TRACE) Urine Glucose (UA) Negative mg/dL (NEG) Urine Ketones (Stick) Trace mg/dL (NEG) Urine Blood Negative (NEG) Urine Nitrite Negative (NEG) Urine Bilirubin Negative (NEG) Urine Urobilinogen Dipstick 0.2 mg/dL (0.2 mg/dL) Urine Leukocyte Esterase Moderate (NEG) Urine RBC 0 /HPF (0-2) Urine WBC Tntc /HPF (0-4) Urine Squamous Epithelial Cells Many /LPF Urine Bacteria Moderate /HPF (0-FEW) Urine Mucus Slight /LPF White Blood Count 10.2 x10^3/uL (4.0-11.0) Red Blood Count 4.68 x10^6/uL (3.50-5.40) Hemoglobin 10.2 g/dL (12.0-15.5) Hematocrit 33.0 % (36.0-47.0) Mean Corpuscular Volume 71 fL (79-100) Mean Corpuscular Hemoglobin 22 pg (25-35) Mean Corpuscular Hemoglobin Concent 31 g/dL (31-37) Red Cell Distribution Width 17.5 % (11.5-14.5) Platelet Count 258 x10^3/uL (140-400) Neutrophils (%) (Auto) 90 % (31-73) Lymphocytes (%) (Auto) 7 % (24-48) Monocytes (%) (Auto) 3 % (0-9) Eosinophils (%) (Auto) 0 % (0-3) Basophils (%) (Auto) 0 % (0-3) Neutrophils # (Auto) 9.1 x10^3/uL (1.8-7.7) Lymphocytes # (Auto) 0.7 x10^3/uL (1.0-4.8) Monocytes # (Auto) 0.3 x10^3/uL (0.0-1.1) Eosinophils # (Auto) 0.0 x10^3/uL (0.0-0.7) Basophils # (Auto) 0.0 x10^3/uL (0.0-0.2) Segmented Neutrophils % 72 % (35-66) Band Neutrophils % 16 % (0-9) Lymphocytes % 10 % (24-48) Monocytes % 2 % (0-10) Platelet Estimate Adequate (ADEQUATE) Hypochromasia Slight Anisocytosis Slight Microcytosis Mod Sodium Level 140 mmol/L (136-145) 142 mmol/L (136-145) Potassium Level 3.2 mmol/L (3.5-5.1) 3.4 mmol/L (3.5-5.1) Chloride Level 100 mmol/L (98-107) 105 mmol/L (98-107) Carbon Dioxide Level 26 mmol/L (21-32) 26 mmol/L (21-32) Anion Gap 14 (6-14) 11 (6-14) Blood Urea Nitrogen 8 mg/dL (7-20) 6 mg/dL (7-20) Creatinine 0.7 mg/dL (0.6-1.0) 0.7 mg/dL (0.6-1.0) Estimated GFR (Cockcroft-Gault) 103.7 103.7 BUN/Creatinine Ratio 11 (6-20) Glucose Level 101 mg/dL (70-99) 98 mg/dL (70-99) Calcium Level 9.0 mg/dL (8.5-10.1) 8.4 mg/dL (8.5-10.1) Magnesium Level 1.6 mg/dL (1.8-2.4) Iron Level 8 ug/dL (50-170) 189 ug/dL (50-170) Total Iron Binding Capacity 432 ug/dL (250-450) 375 ug/dL (250-450) Iron Saturation 2 % (15-34) 50 % (15-34) Total Bilirubin 0.8 mg/dL (0.2-1.0) Aspartate Amino Transf (AST/SGOT) 26 U/L (15-37) Alanine Aminotransferase (ALT/SGPT) 34 U/L (14-59) Alkaline Phosphatase 78 U/L (46-116) Total Protein 8.9 g/dL (6.4-8.2) Albumin 4.2 g/dL (3.4-5.0) Albumin/Globulin Ratio 0.9 (1.0-1.7) Urine Opiates Screen Neg (NEG) Urine Methadone Screen Neg (NEG) Urine Barbiturates Neg (NEG) Urine Phencyclidine Screen Neg (NEG) Urine Amphetamine/Methamphetamine Neg (NEG) Urine Benzodiazepines Screen Neg (NEG) Urine Cocaine Screen Neg (NEG) Urine Cannabinoids Screen Neg (NEG) Urine Ethyl Alcohol Neg (NEG) Bedside Urine HCG, Qualitative Hcg negative (Negative) Test 03/29/19 13:35 03/30/19 03:57 Erythrocyte Sedimentation Rate 57 (0-25) White Blood Count 3.7 x10^3/uL (4.0-11.0) Red Blood Count 3.42 x10^6/uL (3.50-5.40) Hemoglobin 7.6 g/dL (12.0-15.5) Hematocrit 23.9 % (36.0-47.0) Mean Corpuscular Volume 70 fL (79-100) Mean Corpuscular Hemoglobin 22 pg (25-35) Mean Corpuscular Hemoglobin Concent 32 g/dL (31-37) Red Cell Distribution Width 17.0 % (11.5-14.5) Platelet Count 192 x10^3/uL (140-400) Neutrophils (%) (Auto) 58 % (31-73) Lymphocytes (%) (Auto) 32 % (24-48) Monocytes (%) (Auto) 6 % (0-9) Eosinophils (%) (Auto) 3 % (0-3) Basophils (%) (Auto) 1 % (0-3) Neutrophils # (Auto) 2.1 x10^3/uL (1.8-7.7) Lymphocytes # (Auto) 1.2 x10^3/uL (1.0-4.8) Monocytes # (Auto) 0.2 x10^3/uL (0.0-1.1) Eosinophils # (Auto) 0.1 x10^3/uL (0.0-0.7) Basophils # (Auto) 0.0 x10^3/uL (0.0-0.2) Sodium Level 146 mmol/L (136-145) Potassium Level 3.3 mmol/L (3.5-5.1) Chloride Level 111 mmol/L (98-107) Carbon Dioxide Level 26 mmol/L (21-32) Anion Gap 9 (6-14) Blood Urea Nitrogen 8 mg/dL (7-20) Creatinine 0.5 mg/dL (0.6-1.0) Estimated GFR (Cockcroft-Gault) 152.9 BUN/Creatinine Ratio 16 (6-20) Glucose Level 115 mg/dL (70-99) Calcium Level 8.3 mg/dL (8.5-10.1) Total Bilirubin 0.1 mg/dL (0.2-1.0) Aspartate Amino Transf (AST/SGOT) 20 U/L (15-37) Alanine Aminotransferase (ALT/SGPT) 26 U/L (14-59) Alkaline Phosphatase 61 U/L (46-116) Total Protein 6.5 g/dL (6.4-8.2) Albumin 2.9 g/dL (3.4-5.0) Albumin/Globulin Ratio 0.8 (1.0-1.7) Laboratory Tests Test 03/29/19 13:35 03/30/19 03:57 Erythrocyte Sedimentation Rate 57 (0-25) White Blood Count 3.7 x10^3/uL (4.0-11.0) Red Blood Count 3.42 x10^6/uL (3.50-5.40) Hemoglobin 7.6 g/dL (12.0-15.5) Hematocrit 23.9 % (36.0-47.0) Mean Corpuscular Volume 70 fL (79-100) Mean Corpuscular Hemoglobin 22 pg (25-35) Mean Corpuscular Hemoglobin Concent 32 g/dL (31-37) Red Cell Distribution Width 17.0 % (11.5-14.5) Platelet Count 192 x10^3/uL (140-400) Neutrophils (%) (Auto) 58 % (31-73) Lymphocytes (%) (Auto) 32 % (24-48) Monocytes (%) (Auto) 6 % (0-9) Eosinophils (%) (Auto) 3 % (0-3) Basophils (%) (Auto) 1 % (0-3) Neutrophils # (Auto) 2.1 x10^3/uL (1.8-7.7) Lymphocytes # (Auto) 1.2 x10^3/uL (1.0-4.8) Monocytes # (Auto) 0.2 x10^3/uL (0.0-1.1) Eosinophils # (Auto) 0.1 x10^3/uL (0.0-0.7) Basophils # (Auto) 0.0 x10^3/uL (0.0-0.2) Sodium Level 146 mmol/L (136-145) Potassium Level 3.3 mmol/L (3.5-5.1) Chloride Level 111 mmol/L (98-107) Carbon Dioxide Level 26 mmol/L (21-32) Anion Gap 9 (6-14) Blood Urea Nitrogen 8 mg/dL (7-20) Creatinine 0.5 mg/dL (0.6-1.0) Estimated GFR (Cockcroft-Gault) 152.9 BUN/Creatinine Ratio 16 (6-20) Glucose Level 115 mg/dL (70-99) Calcium Level 8.3 mg/dL (8.5-10.1) Total Bilirubin 0.1 mg/dL (0.2-1.0) Aspartate Amino Transf (AST/SGOT) 20 U/L (15-37) Alanine Aminotransferase (ALT/SGPT) 26 U/L (14-59) Alkaline Phosphatase 61 U/L (46-116) Total Protein 6.5 g/dL (6.4-8.2) Albumin 2.9 g/dL (3.4-5.0) Albumin/Globulin Ratio 0.8 (1.0-1.7) Microbiology 03/29/19 Fecal Leukocyte Stain - Final, Complete Medications Current Medications Sodium Chloride 1,000 ml @ 1,000 mls/hr 1X ONCE IV Last administered on 03/28/19at 15:24; Start 03/28/19 at 15:30; Stop 03/28/19 at 16:29; Status DC Ondansetron HCl (Zofran) 4 mg 1X ONCE IV Last administered on 03/28/19at 15:24; Start 03/28/19 at 15:30; Stop 03/28/19 at 15:31; Status DC Morphine Sulfate (Morphine Sulfate) 4 mg 1X ONCE IV Last administered on 03/28/19at 15:25; Start 03/28/19 at 15:30; Stop 03/28/19 at 15:31; Status DC Ceftriaxone Sodium (Rocephin) 1 gm 1X ONCE IVP Last administered on 03/28/19at 17:27; Start 03/28/19 at 15:30; Stop 03/28/19 at 15:31; Status DC Potassium Chloride (Klor-Con) 40 meq 1X ONCE PO Last administered on 03/28/19at 17:28; Start 03/28/19 at 15:30; Stop 03/28/19 at 15:31; Status DC Iohexol (Omnipaque 300 Mg/ml) 75 ml 1X ONCE IV Last administered on 03/28/19at 16:11; Start 03/28/19 at 15:45; Stop 03/28/19 at 15:46; Status DC Info (CONTRAST GIVEN -- Rx MONITORING) 1 each PRN DAILY PRN MC SEE COMMENTS; Start 03/28/19 at 15:45; Stop 03/30/19 at 15:44 Ondansetron HCl (Zofran) 4 mg PRN Q8HRS PRN IV NAUSEA/VOMITING; Start 03/28/19 at 17:30; Stop 03/28/19 at 18:01; Status DC Morphine Sulfate (Morphine Sulfate) 4 mg PRN Q2HR PRN IV PAIN Last administered on 03/29/19at 06:40; Start 03/28/19 at 17:30; Stop 03/29/19 at 17:29; Status DC Sodium Chloride 1,000 ml @ 125 mls/hr Q8H IV Last administered on 03/29/19at 01:28; Start 03/28/19 at 17:28; Stop 03/29/19 at 17:27; Status DC Ondansetron HCl (Zofran) 4 mg PRN Q6HRS PRN IV NAUSEA/VOMITING; Start 03/28/19 at 18:00 Ketorolac Tromethamine (Toradol 30mg Vial) 30 mg PRN Q6HRS PRN IV PAIN Last administered on 03/29/19at 19:28; Start 03/28/19 at 18:00; Stop 04/02/19 at 17:59 Prochlorperazine Edisylate (Compazine) 10 mg PRN Q6HRS PRN IV HEADACHE/NAUSEA/VOMITING; Start 03/28/19 at 20:15 Magnesium Sulfate 100 ml @ 25 mls/hr 1X ONCE IV Last administered on 03/28at 20:53; Start 03/28/19 at 20:15; Stop 03/29/19 at 00:14; Status DC Iron Sucrose 200 mg/Sodium Chloride 110 ml @ 55 mls/hr 1X ONCE IV Last administered on 03/28/19at 20:53; Start 03/28/19 at 21:00; Stop 03/28/19 at 22:59; Status DC Influenza Virus Vaccine Quadrival (Afluria Quad 2019-20 (3yr Up) Syringe) 0.5 ml ONCE ONCE VAX IM Last administered on 03/29/19at 10:23; Start 03/29/19 at 09:00; Stop 03/29/19 at 09:01; Status DC Info (FLU VACCINE SCREEN per RX) 1 each PRN 1X PRN MC SEE COMMENTS; Start 03/29/19 at 00:15; Status Cancel Pantoprazole Sodium (Protonix) 40 mg DAILYAC PO Last administered on 03/30/19at 09:14; Start 03/29/19 at 14:00 Acetaminophen (Tylenol) 650 mg PRN Q6HRS PRN PO HEADACHE Last administered on 03/30/19at 10:25; Start 03/30/19 at 10:30 Active Scripts Active Pepcid (Famotidine) 20 Mg Tablet 20 Mg PO BID Keflex (Cephalexin) 500 Mg Capsule 1 Cap PO BID 7 Days Reglan (Metoclopramide Hcl) 10 Mg Tablet 1 Tab PO QID PRN Macrobid 100 Mg Capsule (Nitrofurantoin Monohyd/M-Cryst) 100 Mg Capsule 1 Cap PO BID Keflex (Cephalexin) 500 Mg Capsule 1 Cap PO BID Vitals/I & O Vital Sign - Last 24 Hours 03/29/19 03/29/19 03/29/19 03/29/19 11:00 15:00 19:00 19:05 Temp 98.4 97.6 98.5 98.4 97.6 98.5 Pulse 87 69 65 Resp 17 17 18 B/P (MAP) 99/52 (68) 102/58 (73) 101/54 (70) Pulse Ox 94 97 98 O2 Delivery Room Air Room Air Room Air Room Air 03/29/19 03/30/19 03/30/19 23:00 03:00 07:00 Temp 97.9 98.0 97.8 97.9 98.0 97.8 Pulse 66 81 65 Resp 18 18 16 B/P (MAP) 98/46 (63) 107/60 (76) 112/56 (74) Pulse Ox 98 99 96 O2 Delivery Room Air Room Air Room Air Intake and Output 03/29/19 03/29/19 03/30/19 15:00 23:00 07:00 Intake Total 700 ml 200 ml Balance 700 ml 200 ml NEGAR LATIF MD Mar 30, 2019 10:51
[2019-03-30 11:00] VITALS: BP 109/55
--- NOTE | 2019-03-30 11:18 | PDOC ---
Subjective: Subjective: Tolerating GI soft diet w/o n/v, abd pain, or diarrhea - had a formed stool this morning. Has a headache. Vaginal bleeding x 3 weeks at a time, 10-11 pads daily - stops for a week and then restarts. Gave at - hasn't followed-up w/ [facility] because was waiting on insurance to call with a list of providers. Objective: Objective: D/w nurse - tolerating diet, would like to go home. Vital Signs: Vital Signs Date Time Temp Pulse Resp B/P (MAP) Pulse Ox O2 Delivery O2 Flow Rate FiO2 03/30/19 07:00 97.8 65 16 112/56 (74) 96 Room Air 97.8 Labs: Laboratory Tests Test 03/29/19 13:35 03/30/19 03:57 Erythrocyte Sedimentation Rate 57 White Blood Count 3.7 x10^3/uL Red Blood Count 3.42 x10^6/uL Hemoglobin 7.6 g/dL Hematocrit 23.9 % Mean Corpuscular Volume 70 fL Mean Corpuscular Hemoglobin 22 pg Mean Corpuscular Hemoglobin Concent 32 g/dL Red Cell Distribution Width 17.0 % Platelet Count 192 x10^3/uL Neutrophils (%) (Auto) 58 % Lymphocytes (%) (Auto) 32 % Monocytes (%) (Auto) 6 % Eosinophils (%) (Auto) 3 % Basophils (%) (Auto) 1 % Neutrophils # (Auto) 2.1 x10^3/uL Lymphocytes # (Auto) 1.2 x10^3/uL Monocytes # (Auto) 0.2 x10^3/uL Eosinophils # (Auto) 0.1 x10^3/uL Basophils # (Auto) 0.0 x10^3/uL Sodium Level 146 mmol/L Potassium Level 3.3 mmol/L Chloride Level 111 mmol/L Carbon Dioxide Level 26 mmol/L Anion Gap 9 Blood Urea Nitrogen 8 mg/dL Creatinine 0.5 mg/dL Estimated GFR (Cockcroft-Gault) 152.9 BUN/Creatinine Ratio 16 Glucose Level 115 mg/dL Calcium Level 8.3 mg/dL Total Bilirubin 0.1 mg/dL Aspartate Amino Transf (AST/SGOT) 20 U/L Alanine Aminotransferase (ALT/SGPT) 26 U/L Alkaline Phosphatase 61 U/L Total Protein 6.5 g/dL Albumin 2.9 g/dL Albumin/Globulin Ratio 0.8 PE: GEN: NAD LUNGS: CTAB HEART: RRR ABD: NABS, S/ND/NT NEURO/PSYCH: A & O �3 A/P: N/v, abd pain, diarrhea - resolved; colitis on CT ANA, menorrhagia - s/p IV iron; celiac serology pending -- ?[facility] opinion EMY PEREIRA Mar 30, 2019 11:18
[2019-03-30] MEDS ORDERED: POTASSIUM CHLORIDE 20 MEQ TABLET.ER. PO ONE (14:00)
[2019-03-30 15:00] VITALS: BP 110/62
--- NOTE | 2019-03-30 15:44 | NUR ---
I was doing leader rounding when Bushra shared with me that she has a history of trauma and is going through a difficult time right now. She is depressed and discouraged. I spent about 30-40 minutes with her as she shared and I encouraged her. I asked her if I could share the details not mentioned here, with medical social consultant to get her some help. She said "yes'. I shared with Homer who will offer her some resources and possible get Rudolph ivolved. She did not express any suicidal ideations just depression.
--- NOTE | 2019-03-30 16:44 | RAD ---
EXAM: Pelvic sonogram. HISTORY: Vaginal bleeding. TECHNIQUE: Transabdominal and transvaginal sonographic imaging of the pelvis was performed. COMPARISON: 02/15/2019. FINDINGS: The uterus measures 9.9 x 4.6 x 5.3 cm. The endometrial stripe is heterogeneous and measures 16 mm in thickness. The ovaries are normal in size and demonstrate normal blood flow. There is a 1.5 cm complex left ovarian cyst, possibly hemorrhagic in etiology. There are bilateral ovarian follicles. There is a small amount of pelvic free fluid. IMPRESSION: 1. Heterogeneous and thickened endometrium. The endometrial stripe thickness is within normal limits for a premenopausal female. No convincing mass is seen. 2. 1.5 cm complex left ovarian cyst, possibly hemorrhagic in etiology. Electronically signed by: Kimmy Cancino MD (03/30/2019 4:41 PM) [facility]
[2019-03-30 19:00] VITALS: BP 98/47
[2019-03-30 23:00] VITALS: BP 106/57
[2019-03-31 03:00] VITALS: BP 105/63
[2019-03-31 04:07] LABS: BASO % 1 % (0-3); EOS # 0.1 x10^3/uL (0.0-0.7); EOS % 3 % (0-3); HEMATOCRIT 24.7 % (36.0-47.0); HEMOGLOBIN 7.7 g/dL (12.0-15.5); LYMPH # 1.5 x10^3/uL (1.0-4.8); LYMPH % 31 % (24-48); MEAN CORPUSCULAR HEMOGLOBIN 22 pg (25-35); MEAN CORPUSCULAR HGB CONC 31 g/dL (31-37); MEAN CORPUSCULAR VOLUME 70 fL (79-100); MONO # 0.3 x10^3/uL (0.0-1.1); MONO % 7 % (0-9); NEUT # 2.7 x10^3/uL (1.8-7.7); NEUT % 58 % (31-73); PLATELET COUNT 245 x10^3/uL (140-400); RED CELL DISTRIBUTION WIDTH 17.1 % (11.5-14.5); WHITE BLOOD COUNT 4.7 x10^3/uL (4.0-11.0)
[2019-03-31 04:17] LABS: CALCIUM 8.7 mg/dL (8.5-10.1); CREATININE 0.6 mg/dL (0.6-1.0); GFR 123.9; POTASSIUM 3.9 mmol/L (3.5-5.1)
[2019-03-31 07:00] VITALS: BP 92/31
--- NOTE | 2019-03-31 09:56 | PDOC ---
PROGRESS NOTES History of Present Illness History of Present Illness Images Images CT abdomen - 1. Diffuse colitis affecting the ascending, transverse and proximal descending colon. Findings may be infectious or inflammatory in etiology. No evidence for perforation or obstruction. 2. Normal-appearing appendix VTE Prophylaxis Ordered VTE Prophylaxis Devices: Yes VTE Pharmacological Prophylaxi: No Assessment/Plan Nausea/Vomiting/Diarrhea - likely viral gastroenteritis, has colitis on CT, no fevers. DEHYDRATION SEC GI FLUID LOSS give IVF. IV anti-emetics Intractable Headache - toradol and compazine prn Hypokalemia - will replace PO Hypomagnesemia - will replace IV Colitis - on CT, confirmed with abdominal pain. IV toradol, morphine prn. esr =57 VAGINAL BLEEDING BY HX, menorrhagia .5 cm complex left ovarian cyst, possibly hemorrhagic in etiology. obtain stool cultures. Iron deficiency anemia - will give IV venofer as she cannot handle oral iron at this time. Monitor FEN - General diet if she can tolerate PPX - ambulatory, low risk dvt FULL CODE CONSULT GI CONSULT MANAGER STORY PELVIC SONO Dispo - inpatient for intractable nausea and vomiting with gastroenteritis/colitis unable to take PO 28 min pt exam, chart review, > 50% of time spent with exam, chart review, pt care coordination Vitals Vitals Vital Signs Date Time Temp Pulse Resp B/P (MAP) Pulse Ox O2 Delivery O2 Flow Rate FiO2 03/31/19 07:00 97.4 65 16 92/31 (51) 95 Room Air 97.4 Physical Exam General: Alert, Oriented X3, Cooperative, No acute distress Heart: Regular rate, Normal S1, Normal S2 Lungs: Clear Abdomen: Normal bowel sounds, Soft, No tenderness, No hepatosplenomegaly, No masses, Other (NO TENDERNESS) Extremities: No clubbing, No cyanosis, No edema, Normal pulses, No tenderness/swelling Skin: No rashes, No breakdown, No significant lesion Labs LABS SEX: F EXAM STATUS: ADM IN ORD. PHYSICIAN: NEGAR LATIF MD REASON: HEAVY VAGINAL BLEEDING PROCEDURE: PELVIS W/TV EXAM: Pelvic sonogram. HISTORY: Vaginal bleeding. TECHNIQUE: Transabdominal and transvaginal sonographic imaging of the pelvis was performed. COMPARISON: 02/15/2019. FINDINGS: The uterus measures 9.9 x 4.6 x 5.3 cm. The endometrial stripe is heterogeneous and measures 16 mm in thickness. The ovaries are normal in size and demonstrate normal blood flow. There is a 1.5 cm complex left ovarian cyst, possibly hemorrhagic in etiology. There are bilateral ovarian follicles. There is a small amount of pelvic free fluid. IMPRESSION: 1. Heterogeneous and thickened endometrium. The endometrial stripe thickness is within normal limits for a premenopausal female. No convincing mass is seen. 2. 1.5 cm complex left ovarian cyst, possibly hemorrhagic in etiology. Electronically signed by: Kimmy Cancino MD (03/30/2019 4:41 PM) [place] [id number] DICTATED and SIGNED BY: KIMMY CANCINO MD DATE: 03/30/19 1641 Laboratory Tests Test 03/31/19 03:25 White Blood Count 4.7 x10^3/uL (4.0-11.0) Red Blood Count 3.50 x10^6/uL (3.50-5.40) Hemoglobin 7.7 g/dL (12.0-15.5) Hematocrit 24.7 % (36.0-47.0) Mean Corpuscular Volume 70 fL (79-100) Mean Corpuscular Hemoglobin 22 pg (25-35) Mean Corpuscular Hemoglobin Concent 31 g/dL (31-37) Red Cell Distribution Width 17.1 % (11.5-14.5) Platelet Count 245 x10^3/uL (140-400) Neutrophils (%) (Auto) 58 % (31-73) Lymphocytes (%) (Auto) 31 % (24-48) Monocytes (%) (Auto) 7 % (0-9) Eosinophils (%) (Auto) 3 % (0-3) Basophils (%) (Auto) 1 % (0-3) Neutrophils # (Auto) 2.7 x10^3/uL (1.8-7.7) Lymphocytes # (Auto) 1.5 x10^3/uL (1.0-4.8) Monocytes # (Auto) 0.3 x10^3/uL (0.0-1.1) Eosinophils # (Auto) 0.1 x10^3/uL (0.0-0.7) Basophils # (Auto) 0.0 x10^3/uL (0.0-0.2) Sodium Level 143 mmol/L (136-145) Potassium Level 3.9 mmol/L (3.5-5.1) Chloride Level 108 mmol/L (98-107) Carbon Dioxide Level 25 mmol/L (21-32) Anion Gap 10 (6-14) Blood Urea Nitrogen 7 mg/dL (7-20) Creatinine 0.6 mg/dL (0.6-1.0) Estimated GFR (Cockcroft-Gault) 123.9 Glucose Level 99 mg/dL (70-99) Calcium Level 8.7 mg/dL (8.5-10.1) Assessment and Plan Assessmemt and Plan Problems Medical Problems: (1) Colitis Status: Acute Comment Review of Relevant I have reviewed the following items ashu (where applicable) has been applied. Labs Laboratory Tests Test 03/29/19 13:35 03/30/19 03:57 03/31/19 03:25 Erythrocyte Sedimentation Rate 57 (0-25) White Blood Count 3.7 x10^3/uL (4.0-11.0) 4.7 x10^3/uL (4.0-11.0) Red Blood Count 3.42 x10^6/uL (3.50-5.40) 3.50 x10^6/uL (3.50-5.40) Hemoglobin 7.6 g/dL (12.0-15.5) 7.7 g/dL (12.0-15.5) Hematocrit 23.9 % (36.0-47.0) 24.7 % (36.0-47.0) Mean Corpuscular Volume 70 fL (79-100) 70 fL (79-100) Mean Corpuscular Hemoglobin 22 pg (25-35) 22 pg (25-35) Mean Corpuscular Hemoglobin Concent 32 g/dL (31-37) 31 g/dL (31-37) Red Cell Distribution Width 17.0 % (11.5-14.5) 17.1 % (11.5-14.5) Platelet Count 192 x10^3/uL (140-400) 245 x10^3/uL (140-400) Neutrophils (%) (Auto) 58 % (31-73) 58 % (31-73) Lymphocytes (%) (Auto) 32 % (24-48) 31 % (24-48) Monocytes (%) (Auto) 6 % (0-9) 7 % (0-9) Eosinophils (%) (Auto) 3 % (0-3) 3 % (0-3) Basophils (%) (Auto) 1 % (0-3) 1 % (0-3) Neutrophils # (Auto) 2.1 x10^3/uL (1.8-7.7) 2.7 x10^3/uL (1.8-7.7) Lymphocytes # (Auto) 1.2 x10^3/uL (1.0-4.8) 1.5 x10^3/uL (1.0-4.8) Monocytes # (Auto) 0.2 x10^3/uL (0.0-1.1) 0.3 x10^3/uL (0.0-1.1) Eosinophils # (Auto) 0.1 x10^3/uL (0.0-0.7) 0.1 x10^3/uL (0.0-0.7) Basophils # (Auto) 0.0 x10^3/uL (0.0-0.2) 0.0 x10^3/uL (0.0-0.2) Sodium Level 146 mmol/L (136-145) 143 mmol/L (136-145) Potassium Level 3.3 mmol/L (3.5-5.1) 3.9 mmol/L (3.5-5.1) Chloride Level 111 mmol/L (98-107) 108 mmol/L (98-107) Carbon Dioxide Level 26 mmol/L (21-32) 25 mmol/L (21-32) Anion Gap 9 (6-14) 10 (6-14) Blood Urea Nitrogen 8 mg/dL (7-20) 7 mg/dL (7-20) Creatinine 0.5 mg/dL (0.6-1.0) 0.6 mg/dL (0.6-1.0) Estimated GFR (Cockcroft-Gault) 152.9 123.9 BUN/Creatinine Ratio 16 (6-20) Glucose Level 115 mg/dL (70-99) 99 mg/dL (70-99) Calcium Level 8.3 mg/dL (8.5-10.1) 8.7 mg/dL (8.5-10.1) Total Bilirubin 0.1 mg/dL (0.2-1.0) Aspartate Amino Transf (AST/SGOT) 20 U/L (15-37) Alanine Aminotransferase (ALT/SGPT) 26 U/L (14-59) Alkaline Phosphatase 61 U/L (46-116) Total Protein 6.5 g/dL (6.4-8.2) Albumin 2.9 g/dL (3.4-5.0) Albumin/Globulin Ratio 0.8 (1.0-1.7) Laboratory Tests Test 03/31/19 03:25 White Blood Count 4.7 x10^3/uL (4.0-11.0) Red Blood Count 3.50 x10^6/uL (3.50-5.40) Hemoglobin 7.7 g/dL (12.0-15.5) Hematocrit 24.7 % (36.0-47.0) Mean Corpuscular Volume 70 fL (79-100) Mean Corpuscular Hemoglobin 22 pg (25-35) Mean Corpuscular Hemoglobin Concent 31 g/dL (31-37) Red Cell Distribution Width 17.1 % (11.5-14.5) Platelet Count 245 x10^3/uL (140-400) Neutrophils (%) (Auto) 58 % (31-73) Lymphocytes (%) (Auto) 31 % (24-48) Monocytes (%) (Auto) 7 % (0-9) Eosinophils (%) (Auto) 3 % (0-3) Basophils (%) (Auto) 1 % (0-3) Neutrophils # (Auto) 2.7 x10^3/uL (1.8-7.7) Lymphocytes # (Auto) 1.5 x10^3/uL (1.0-4.8) Monocytes # (Auto) 0.3 x10^3/uL (0.0-1.1) Eosinophils # (Auto) 0.1 x10^3/uL (0.0-0.7) Basophils # (Auto) 0.0 x10^3/uL (0.0-0.2) Sodium Level 143 mmol/L (136-145) Potassium Level 3.9 mmol/L (3.5-5.1) Chloride Level 108 mmol/L (98-107) Carbon Dioxide Level 25 mmol/L (21-32) Anion Gap 10 (6-14) Blood Urea Nitrogen 7 mg/dL (7-20) Creatinine 0.6 mg/dL (0.6-1.0) Estimated GFR (Cockcroft-Gault) 123.9 Glucose Level 99 mg/dL (70-99) Calcium Level 8.7 mg/dL (8.5-10.1) Microbiology 03/29/19 Stool Culture - Final, Resulted 03/29/19 Stool Culture Result 1 (MICHAELA) - Final, Resulted 03/29/19 Campylobacter Antigen Assay - Preliminary, Resulted 03/29/19 Campylobactor Result 1 - Preliminary, Resulted 03/29/19 Shiga Toxin Test, Resulted Pending 03/28/19 Urine Culture - Final, Complete 03/28/19 Urine Culture Result 1 (MICHAELA) - Final, Complete Medications Current Medications Sodium Chloride 1,000 ml @ 1,000 mls/hr 1X ONCE IV Last administered on 03/28/19at 15:24; Start 03/28/19 at 15:30; Stop 03/28/19 at 16:29; Status DC Ondansetron HCl (Zofran) 4 mg 1X ONCE IV Last administered on 03/28/19at 15:24; Start 03/28/19 at 15:30; Stop 03/28/19 at 15:31; Status DC Morphine Sulfate (Morphine Sulfate) 4 mg 1X ONCE IV Last administered on 03/28/19at 15:25; Start 03/28/19 at 15:30; Stop 03/28/19 at 15:31; Status DC Ceftriaxone Sodium (Rocephin) 1 gm 1X ONCE IVP Last administered on 03/28/19at 17:27; Start 03/28/19 at 15:30; Stop 03/28/19 at 15:31; Status DC Potassium Chloride (Klor-Con) 40 meq 1X ONCE PO Last administered on 03/28/19at 17:28; Start 03/28/19 at 15:30; Stop 03/28/19 at 15:31; Status DC Iohexol (Omnipaque 300 Mg/ml) 75 ml 1X ONCE IV Last administered on 03/28/19at 16:11; Start 03/28/19 at 15:45; Stop 03/28/19 at 15:46; Status DC Info (CONTRAST GIVEN -- Rx MONITORING) 1 each PRN DAILY PRN MC SEE COMMENTS; Start 03/28/19 at 15:45; Stop 03/30/19 at 15:44; Status DC Ondansetron HCl (Zofran) 4 mg PRN Q8HRS PRN IV NAUSEA/VOMITING; Start 03/28/19 at 17:30; Stop 03/28/19 at 18:01; Status DC Morphine Sulfate (Morphine Sulfate) 4 mg PRN Q2HR PRN IV PAIN Last administered on 03/29/19at 06:40; Start 03/28/19 at 17:30; Stop 03/29/19 at 17:29; Status DC Sodium Chloride 1,000 ml @ 125 mls/hr Q8H IV Last administered on 03/29/19at 01:28; Start 03/28/19 at 17:28; Stop 03/29/19 at 17:27; Status DC Ondansetron HCl (Zofran) 4 mg PRN Q6HRS PRN IV NAUSEA/VOMITING, 1st CHOICE; Start 03/28/19 at 18:00 Ketorolac Tromethamine (Toradol 30mg Vial) 30 mg PRN Q6HRS PRN IV PAIN Last administered on 03/29/19at 19:28; Start 03/28/19 at 18:00; Stop 04/02/19 at 17:59 Prochlorperazine Edisylate (Compazine) 10 mg PRN Q6HRS PRN IV HEADACHE, N/V 2nd CHOICE; Start 03/28/19 at 20:15 Magnesium Sulfate 100 ml @ 25 mls/hr 1X ONCE IV Last administered on 03/28/19at 20:53; Start 03/28/19 at 20:15; Stop 03/29/19 at 00:14; Status DC Iron Sucrose 200 mg/Sodium Chloride 110 ml @ 55 mls/hr 1X ONCE IV Last administered on 03/28/19at 20:53; Start 03/28/19 at 21:00; Stop 03/28/19 at 22:59; Status DC Influenza Virus Vaccine Quadrival (Afluria Quad 2019-20 (3yr Up) Syringe) 0.5 ml ONCE ONCE VAX IM Last administered on 03/29/19at 10:23; Start 03/29/19 at 09:00; Stop 03/29/19 at 09:01; Status DC Info (FLU VACCINE SCREEN per RX) 1 each PRN 1X PRN MC SEE COMMENTS; Start 03/29/19 at 00:15; Status Cancel Pantoprazole Sodium (Protonix) 40 mg DAILYAC PO Last administered on 03/30/19at 09:14; Start 03/29/19 at 14:00 Acetaminophen (Tylenol) 650 mg PRN Q6HRS PRN PO HEADACHE Last administered on 03/30/19at 10:25; Start 03/30/19 at 10:30 Potassium Chloride (Klor-Con) 40 meq 1X ONCE PO Last administered on 03/30/19at 15:32; Start 03/30/19 at 14:00; Stop 03/30/19 at 14:01; Status DC Potassium Chloride (Klor-Con) 20 meq DAILYWBKFT PO ; Start 03/31/19 at 08:00 Active Scripts Active Pepcid (Famotidine) 20 Mg Tablet 20 Mg PO BID Keflex (Cephalexin) 500 Mg Capsule 1 Cap PO BID 7 Days Reglan (Metoclopramide Hcl) 10 Mg Tablet 1 Tab PO QID PRN Macrobid 100 Mg Capsule (Nitrofurantoin Monohyd/M-Cryst) 100 Mg Capsule 1 Cap PO BID Keflex (Cephalexin) 500 Mg Capsule 1 Cap PO BID Vitals/I & O Vital Sign - Last 24 Hours 03/30/19 03/30/19 03/30/19 03/30/19 11:00 15:00 19:00 20:00 Temp 98.0 98.2 98.1 98.0 98.2 98.1 Pulse 71 62 65 Resp 14 16 16 B/P (MAP) 109/55 (73) 110/62 (78) 98/47 (64) Pulse Ox 99 100 98 O2 Delivery Room Air Room Air Room Air Room Air 03/30/19 03/31/19 03/31/19 23:00 03:00 07:00 Temp 98.4 98.4 97.4 98.4 98.4 97.4 Pulse 70 70 65 Resp 16 16 16 B/P (MAP) 106/57 (73) 105/63 (77) 92/31 (51) Pulse Ox 97 97 95 O2 Delivery Room Air Room Air Room Air Intake and Output 03/30/19 03/30/19 03/31/19 14:59 22:59 06:59 Intake Total 320 ml Balance 320 ml FULBRIGHT,NEGAR W MD Mar 31, 2019 09:56
[2019-03-31] MEDS: PANTOPRAZOLE 40 MG TABLET.DR. PO SCH (10:20)
[2019-03-31] MEDS: POTASSIUM CHLORIDE 20 MEQ TABLET.ER. PO SCH (10:20)
[2019-03-31] MEDS: ACETAMINOPHEN 325 MG TABLET. PO PRN (10:21)
[2019-03-31 11:00] VITALS: BP 92/59
--- NOTE | 2019-03-31 11:22 | PDOC ---
Subjective: Subjective: Some diarrhea - better. Tolerating PO. Objective: Vital Signs: Vital Signs Date Time Temp Pulse Resp B/P (MAP) Pulse Ox O2 Delivery O2 Flow Rate FiO2 03/31/19 07:00 97.4 65 16 92/31 (51) 95 Room Air 97.4 Labs: Laboratory Tests Test 03/31/19 03:25 White Blood Count 4.7 x10^3/uL Red Blood Count 3.50 x10^6/uL Hemoglobin 7.7 g/dL Hematocrit 24.7 % Mean Corpuscular Volume 70 fL Mean Corpuscular Hemoglobin 22 pg Mean Corpuscular Hemoglobin Concent 31 g/dL Red Cell Distribution Width 17.1 % Platelet Count 245 x10^3/uL Neutrophils (%) (Auto) 58 % Lymphocytes (%) (Auto) 31 % Monocytes (%) (Auto) 7 % Eosinophils (%) (Auto) 3 % Basophils (%) (Auto) 1 % Neutrophils # (Auto) 2.7 x10^3/uL Lymphocytes # (Auto) 1.5 x10^3/uL Monocytes # (Auto) 0.3 x10^3/uL Eosinophils # (Auto) 0.1 x10^3/uL Basophils # (Auto) 0.0 x10^3/uL Sodium Level 143 mmol/L Potassium Level 3.9 mmol/L Chloride Level 108 mmol/L Carbon Dioxide Level 25 mmol/L Anion Gap 10 Blood Urea Nitrogen 7 mg/dL Creatinine 0.6 mg/dL Estimated GFR (Cockcroft-Gault) 123.9 Glucose Level 99 mg/dL Calcium Level 8.7 mg/dL Imaging: Pelvis US 03/30 IMPRESSION: 1. Heterogeneous and thickened endometrium. The endometrial stripe thickness is within normal limits for a premenopausal female. No convincing mass is seen. 2. 1.5 cm complex left ovarian cyst, possibly hemorrhagic in etiology. PE: GEN: NAD LUNGS: CTAB HEART: RRR ABD: NABS, S/ND/NT NEURO/PSYCH: A & O �3 A/P: N/v, abd pain, diarrhea - resolved; colitis on CT ANA, menorrhagia - pelv US as above, received IV iron, celiac serology pending -- Awaiting MAID HOUSEKEEPER opinion. Stable from GI-standpoint. EMY PEREIRA Mar 31, 2019 11:22
[2019-03-31 15:00] VITALS: BP 96/49
[2019-03-31 15:14] LABS: GLIA IGA 5 units (0-19); GLIA IGG 4 units (0-19); TRANSGLUTAMINASE IGA AB <2 U/mL (0-3); TRANSGLUTAMINASE IGG AB <2 U/mL (0-5)
[2019-03-31 19:00] VITALS: BP 104/47
[2019-03-31 23:00] VITALS: BP 107/61
[2019-04-01 03:00] VITALS: BP 97/48
[2019-04-01 07:00] VITALS: BP 97/49
[2019-04-01] MEDS: POTASSIUM CHLORIDE 20 MEQ TABLET.ER. PO SCH (08:31)
[2019-04-01] MEDS: PANTOPRAZOLE 40 MG TABLET.DR. PO SCH (08:31)
--- NOTE | 2019-04-01 10:41 | PDOC ---
PROGRESS NOTES History of Present Illness History of Present Illness Images Images CT abdomen - 1. Diffuse colitis affecting the ascending, transverse and proximal descending colon. Findings may be infectious or inflammatory in etiology. No evidence for perforation or obstruction. 2. Normal-appearing appendix VTE Prophylaxis Ordered VTE Prophylaxis Devices: Yes VTE Pharmacological Prophylaxi: No Assessment/Plan Nausea/Vomiting/Diarrhea - likely viral gastroenteritis, has colitis on CT, no fevers. DEHYDRATION SEC GI FLUID LOSS give IVF. IV anti-emetics Intractable Headache - toradol and compazine prn Hypokalemia - will replace PO Hypomagnesemia - will replace IV Colitis - on CT, confirmed with abdominal pain. IV toradol, morphine prn. esr =57 VAGINAL BLEEDING BY HX, menorrhagia .5 cm complex left ovarian cyst, possibly hemorrhagic in etiology. obtain stool cultures. Iron deficiency anemia - IV venofer as she cannot handle oral iron at this time. FEN - General diet PPX - ambulatory, low risk dvt FULL CODE CONSULT GI CONSULT CREDIT AUTHORIZER PELVIC SONO reviewed Dispo - inpatient for intractable nausea and vomiting with gastroenteritis/colitis await CREDIT AUTHORIZER CONSULT, can see DR ZALDIVAR OUTPT, SEE GI SOON WELL 27 min pt exam, chart review D/C PLANNING , > 50% of time spent with exam, chart review, pt care coordination Vitals Vitals Vital Signs Date Time Temp Pulse Resp B/P (MAP) Pulse Ox O2 Delivery O2 Flow Rate FiO2 04/01/19 07:00 98.1 67 16 97/49 (65) 98 Room Air 98.1 Physical Exam General: Alert, Oriented X3, Cooperative, No acute distress Heart: Regular rate, Normal S1, Normal S2 Lungs: Clear Abdomen: Normal bowel sounds, Soft, No tenderness, No hepatosplenomegaly, No masses, Other (NO TENDERNESS) Extremities: No clubbing, No cyanosis, No edema, Normal pulses, No tendernes s/swelling Skin: No rashes, No breakdown, No significant lesion Labs LABS Procedure Result URINE CULTURE Final Final report URINE CULTURE RES 1 Final Comment Culture shows less than 10,000 colony forming units of bacteria per milliliter of urine. This colony count is not generally considered to be clinically significant. Performed at: [address] [id number] [employer] Intern: FATIMAH Quiroz MD, Phone: [phone] OMMENTS: Has specimen been collected/obtained? Y - Procedure Result STOOL CULTURE Final Final report STOOL CULT RES 1 Final Comment No Salmonella or Shigella recovered. CAMPY Preliminary Preliminary report CAMPY RES 1 Preliminary Comment No Campylobacter species isolated. Performed at: [address] [id number] [employer] Intern: FATIMAH Quiroz MD, Phone: [phone] SHIGA TOXIN Final Negative Negative Performed at: [address] [id number] [employer] Intern: FATIMAH Quiroz MD, Phone: [phone] Assessment and Plan Assessmemt and Plan Problems Medical Problems: (1) Colitis Status: Acute Comment Review of Relevant I have reviewed the following items ashu (where applicable) has been applied. Labs Laboratory Tests Test 03/31/19 03:25 White Blood Count 4.7 x10^3/uL (4.0-11.0) Red Blood Count 3.50 x10^6/uL (3.50-5.40) Hemoglobin 7.7 g/dL (12.0-15.5) Hematocrit 24.7 % (36.0-47.0) Mean Corpuscular Volume 70 fL (79-100) Mean Corpuscular Hemoglobin 22 pg (25-35) Mean Corpuscular Hemoglobin Concent 31 g/dL (31-37) Red Cell Distribution Width 17.1 % (11.5-14.5) Platelet Count 245 x10^3/uL (140-400) Neutrophils (%) (Auto) 58 % (31-73) Lymphocytes (%) (Auto) 31 % (24-48) Monocytes (%) (Auto) 7 % (0-9) Eosinophils (%) (Auto) 3 % (0-3) Basophils (%) (Auto) 1 % (0-3) Neutrophils # (Auto) 2.7 x10^3/uL (1.8-7.7) Lymphocytes # (Auto) 1.5 x10^3/uL (1.0-4.8) Monocytes # (Auto) 0.3 x10^3/uL (0.0-1.1) Eosinophils # (Auto) 0.1 x10^3/uL (0.0-0.7) Basophils # (Auto) 0.0 x10^3/uL (0.0-0.2) Sodium Level 143 mmol/L (136-145) Potassium Level 3.9 mmol/L (3.5-5.1) Chloride Level 108 mmol/L (98-107) Carbon Dioxide Level 25 mmol/L (21-32) Anion Gap 10 (6-14) Blood Urea Nitrogen 7 mg/dL (7-20) Creatinine 0.6 mg/dL (0.6-1.0) Estimated GFR (Cockcroft-Gault) 123.9 Glucose Level 99 mg/dL (70-99) Calcium Level 8.7 mg/dL (8.5-10.1) Microbiology 03/29/19 Stool Culture - Final, Resulted 03/29/19 Stool Culture Result 1 (MICHAELA) - Final, Resulted 03/29/19 Campylobacter Antigen Assay - Preliminary, Resulted 03/29/19 Campylobactor Result 1 - Preliminary, Resulted 03/29/19 Shiga Toxin Test - Final, Resulted 03/28/19 Urine Culture - Final, Complete 03/28/19 Urine Culture Result 1 (MICHAELA) - Final, Complete Medications Current Medications Sodium Chloride 1,000 ml @ 1,000 mls/hr 1X ONCE IV Last administered on 03/28/19at 15:24; Start 03/28/19 at 15:30; Stop 03/28/19 at 16:29; Status DC Ondansetron HCl (Zofran) 4 mg 1X ONCE IV Last administered on 03/28/19at 15:24; Start 03/28/19 at 15:30; Stop 03/28/19 at 15:31; Status DC Morphine Sulfate (Morphine Sulfate) 4 mg 1X ONCE IV Last administered on 03/28/19at 15:25; Start 03/28/19 at 15:30; Stop 03/28/19 at 15:31; Status DC Ceftriaxone Sodium (Rocephin) 1 gm 1X ONCE IVP Last administered on 03/28/19at 17:27; Start 03/28/19 at 15:30; Stop 03/28/19 at 15:31; Status DC Potassium Chloride (Klor-Con) 40 meq 1X ONCE PO Last administered on 03/28/19at 17:28; Start 03/28/19 at 15:30; Stop 03/28/19 at 15:31; Status DC Iohexol (Omnipaque 300 Mg/ml) 75 ml 1X ONCE IV Last administered on 03/28/19at 16:11; Start 03/28/19 at 15:45; Stop 03/28/19 at 15:46; Status DC Info (CONTRAST GIVEN -- Rx MONITORING) 1 each PRN DAILY PRN MC SEE COMMENTS; Start 03/28/19 at 15:45; Stop 03/30/19 at 15:44; Status DC Ondansetron HCl (Zofran) 4 mg PRN Q8HRS PRN IV NAUSEA/VOMITING; Start 03/28/19 at 17:30; Stop 03/28/19 at 18:01; Status DC Morphine Sulfate (Morphine Sulfate) 4 mg PRN Q2HR PRN IV PAIN Last administered on 03/29/19at 06:40; Start 03/28/19 at 17:30; Stop 03/29/19 at 17:29; Status DC Sodium Chloride 1,000 ml @ 125 mls/hr Q8H IV Last administered on 03/29/19at 01:28; Start 03/28/19 at 17:28; Stop 03/29/19 at 17:27; Status DC Ondansetron HCl (Zofran) 4 mg PRN Q6HRS PRN IV NAUSEA/VOMITING, 1st CHOICE; Start 03/28/19 at 18:00 Ketorolac Tromethamine (Toradol 30mg Vial) 30 mg PRN Q6HRS PRN IV PAIN Last administered on 03/29/19at 19:28; Start 03/28/19 at 18:00; Stop 04/02/19 at 17:59 Prochlorperazine Edisylate (Compazine) 10 mg PRN Q6HRS PRN IV HEADACHE, N/V 2nd CHOICE; Start 03/28/19 at 20:15 Magnesium Sulfate 100 ml @ 25 mls/hr 1X ONCE IV Last administered on 03/28/19at 20:53; Start 03/28/19 at 20:15; Stop 03/29/19 at 00:14; Status DC Iron Sucrose 200 mg/Sodium Chloride 110 ml @ 55 mls/hr 1X ONCE IV Last administered on 03/28/19at 20:53; Start 03/28/19 at 21:00; Stop 03/28/19 at 22:59; Status DC Influenza Virus Vaccine Quadrival (Afluria Quad 2019-20 (3yr Up) Syringe) 0.5 ml ONCE ONCE VAX IM Last administered on 03/29/19at 10:23; Start 03/29/19 at 09:00; Stop 03/29/19 at 09:01; Status DC Info (FLU VACCINE SCREEN per RX) 1 each PRN 1X PRN MC SEE COMMENTS; Start 03/29/19 at 00:15; Status Cancel Pantoprazole Sodium (Protonix) 40 mg DAILYAC PO Last administered on 04/01/19at 08:31; Start 03/29/19 at 14:00 Acetaminophen (Tylenol) 650 mg PRN Q6HRS PRN PO HEADACHE Last administered on 03/31/19at 10:21; Start 03/30/19 at 10:30 Potassium Chloride (Klor-Con) 40 meq 1X ONCE PO Last administered on 03/30/19at 15:32; Start 03/30/19 at 14:00; Stop 03/30/19 at 14:01; Status DC Potassium Chloride (Klor-Con) 20 meq DAILYWBKFT PO Last administered on 04/01/19at 08:31; Start 03/31/19 at 08:00 Active Scripts Active Pepcid (Famotidine) 20 Mg Tablet 20 Mg PO BID Keflex (Cephalexin) 500 Mg Capsule 1 Cap PO BID 7 Days Reglan (Metoclopramide Hcl) 10 Mg Tablet 1 Tab PO QID PRN Macrobid 100 Mg Capsule (Nitrofurantoin Monohyd/M-Cryst) 100 Mg Capsule 1 Cap PO BID Keflex (Cephalexin) 500 Mg Capsule 1 Cap PO BID Vitals/I & O Vital Sign - Last 24 Hours 03/31/19 03/31/19 03/31/19 03/31/19 11:00 15:00 19:00 21:00 Temp 98.2 98.3 98.1 98.2 98.3 98.1 Pulse 66 68 64 Resp 17 17 16 B/P (MAP) 92/59 (70) 96/49 (65) 104/47 (66) Pulse Ox 99 96 97 O2 Delivery Room Air Room Air Room Air Room Air 03/31/19 04/01/19 04/01/19 23:00 03:00 07:00 Temp 98.3 98.3 98.1 98.3 98.3 98.1 Pulse 63 56 67 Resp 18 18 16 B/P (MAP) 107/61 (76) 97/48 (64) 97/49 (65) Pulse Ox 98 96 98 O2 Delivery Room Air Room Air Room Air Intake and Output 03/31/19 03/31/19 04/01/19 14:59 22:59 06:59 Intake Total 300 ml 100 ml Balance 300 ml 100 ml NEGAR LATIF MD Apr 01, 2019 10:41
[2019-04-01 11:00] VITALS: BP 124/44
--- NOTE | 2019-04-01 12:16 | PDOC3 ---
Discharge Summary Date of Admission: Mar 28, 2019 Date of Discharge: Apr 01, 2019 Follow-Up: 3-5 days Admitting Diagnosis comment: DISCHARGE DX Nausea/Vomiting/Diarrhea - likely viral gastroenteritis, has colitis on CT, no fevers. DEHYDRATION SEC GI FLUID LOSS, RESOLVED give IVF. IV anti-emetics Intractable Headache - toradol and compazine prn Hypokalemia - will replace PO Hypomagnesemia - will replace IV Colitis - on CT, confirmed with abdominal pain. IV toradol, morphine prn. esr =57 VAGINAL BLEEDING BY HX, menorrhagia .5 cm complex left ovarian cyst, possibly hemorrhagic in etiology. obtain stool cultures. Iron deficiency anemia - IV venofer as she cannot handle oral iron at this time. FEN - General diet PPX - ambulatory, low risk dvt FULL CODE CONSULT GI CONSULT CRM SYSTEM ADMINISTRATOR PELVIC SONO reviewed Dispo - inpatient for intractable nausea and vomiting with gastroen teritis/colitis await CRM SYSTEM ADMINISTRATOR CONSULT, can see DR ZALDIVAR OUTPT, SEE GI SOON WELL 27 min pt exam, chart review D/C PLANNING , > 50% of time spent with exam, chart review, pt care coordination Vitals Vitals Vital Signs Date Time Temp Pulse Resp B/P (MAP) Pulse Ox O2 Delivery O2 Flow Rate FiO2 04/01/19 07:00 98.1 67 16 97/49 (65) 98 Room Air 98.1 Physical Exam General: Alert, Oriented X3, Cooperative, No acute distress Heart: Regular rate, Normal S1, Normal S2 Lungs: Clear Abdomen: Normal bowel sounds, Soft, No tenderness, No hepatosplenomegaly, No masses, Other (NO TENDERNESS) Extremities: No clubbing, No cyanosis, No edema, Normal pulses, No tenderness/swelling Skin: No rashes, No breakdown, No significant lesion Labs LABS Procedure Result URINE CULTURE Final Final report URINE CULTURE RES 1 Final Comment Culture shows less than 10,000 colony forming units of bacteria per milliliter of urine. This colony count is not generally considered to be clinically significant. Performed at: [address] [id number] Virtual Office Assistant: FATIMAH Quiroz MD, Phone: [phone] OMMENTS: Has specimen been collected/obtained? Y Procedure Result STOOL CULTURE Final Final report STOOL CULT RES 1 Final Comment No Salmonella or Shigella recovered. CAMPY Preliminary Preliminary report CAMPY RES 1 Preliminary Comment No Campylobacter species isolated. Performed at: [address] [id number] Virtual Office Assistant: FATIMAH Quiroz MD, Phone: [phone] SHIGA TOXIN Final Negative Negative Performed at: [address] [id number] Virtual Office Assistant: FATIMAH Quiroz MD, Phone: [phone] FINAL DIAGNOSIS Problems Medical Problems: (1) Colitis Status: Acute Brief Hospital Course Ms. Clemens is a 23 old [sex] who presented with [COLITIS, ANEMIA ] CONDITION AT DISCHARGE: Improved Discharge Medications Current Medications Sodium Chloride 1,000 ml @ 1,000 mls/hr 1X ONCE IV Last administered on 03/28/19 15:24; Start 03/28/19 at 15:30; Stop 03/28/19 at 16:29; Status DC Ondansetron HCl (Zofran) 4 mg 1X ONCE IV Last administered on 03/28/19at 15:24; Start 03/28/19 at 15:30; Stop 03/28/19 at 15:31; Status DC Morphine Sulfate (Morphine Sulfate) 4 mg 1X ONCE IV Last administered on 03/28/19at 15:25; Start 03/28/19 at 15:30; Stop 03/28/19 at 15:31; Status DC Ceftriaxone Sodium (Rocephin) 1 gm 1X ONCE IVP Last administered on 03/28/19 17:27; Start 03/28/19 at 15:30; Stop 03/28/19 at 15:31; Status DC Potassium Chloride (Klor-Con) 40 meq 1X ONCE PO Last administered on 03/28/19at 17:28; Start 03/28/19 at 15:30; Stop 03/28/19 at 15:31; Status DC Iohexol (Omnipaque 300 Mg/ml) 75 ml 1X ONCE IV Last administered on 03/28/19at 16:11; Start 03/28/19 at 15:45; Stop 03/28/19 at 15:46; Status DC Info (CONTRAST GIVEN -- Rx MONITORING) 1 each PRN DAILY PRN MC SEE COMMENTS; Start 03/28/19 at 15:45; Stop 03/30/19 at 15:44; Status DC Ondansetron HCl (Zofran) 4 mg PRN Q8HRS PRN IV NAUSEA/VOMITING; Start 03/28/19 at 17:30; Stop 03/28/19 at 18:01; Status DC Morphine Sulfate (Morphine Sulfate) 4 mg PRN Q2HR PRN IV PAIN Last administered on 03/29/19at 06:40; Start 03/28/19 at 17:30; Stop 03/29/19 at 17:29; Status DC Sodium Chloride 1,000 ml @ 125 mls/hr Q8H IV Last administered on 03/29/19at 01:28; Start 03/28/19 at 17:28; Stop 03/29/19 at 17:27; Status DC Ondansetron HCl (Zofran) 4 mg PRN Q6HRS PRN IV NAUSEA/VOMITING, 1st CHOICE; Start 03/28/19 at 18:00 Ketorolac Tromethamine (Toradol 30mg Vial) 30 mg PRN Q6HRS PRN IV PAIN Last administered on 03/29/19 19:28; Start 03/28/19 at 18:00; Stop 04/02/19 at 17:59 Prochlorperazine Edisylate (Compazine) 10 mg PRN Q6HRS PRN IV HEADACHE, N/V 2nd CHOICE; Start 03/28/19 at 20:15 Magnesium Sulfate 100 ml @ 25 mls/hr 1X ONCE IV Last administered on 03/28/19at 20:53; Start 03/28/19 at 20:15; Stop 03/29/19 at 00:14; Status DC Iron Sucrose 200 mg/Sodium Chloride 110 ml @ 55 mls/hr 1X ONCE IV Last administered on 03/28/19at 20:53; Start 03/28/19 at 21:00; Stop 03/28/19 at 22:59; Status DC Influenza Virus Vaccine Quadrival (Afluria Quad 2019-20 (3yr Up) Syringe) 0.5 ml ONCE ONCE VAX IM Last administered on 03/29/19at 10:23; Start 03/29/19 at 09:00; Stop 03/29/19 at 09:01; Status DC Info (FLU VACCINE SCREEN per RX) 1 each PRN 1X PRN MC SEE COMMENTS; Start 03/29/19 at 00:15; Status Cancel Pantoprazole Sodium (Protonix) 40 mg DAILYAC PO Last administered on 04/01/19at 08:31; Start 03/29/19 at 14:00 Acetaminophen (Tylenol) 650 mg PRN Q6HRS PRN PO HEADACHE Last administered on 03/31/19at 10:21; Start 03/30/19 at 10:30 Potassium Chloride (Klor-Con) 40 meq 1X ONCE PO Last administered on 03/30/19 15:32; Start 03/30/19 at 14:00; Stop 03/30/19 at 14:01; Status DC Potassium Chloride (Klor-Con) 20 meq DAILYWBKFT PO Last administered on 04/01/19at 08:31; Start 10/9/19 at 08:00 Active Scripts Active Pepcid (Famotidine) 20 Mg Tablet 20 Mg PO BID Keflex (Cephalexin) 500 Mg Capsule 1 Cap PO BID 7 Days Reglan (Metoclopramide Hcl) 10 Mg Tablet 1 Tab PO QID PRN Macrobid 100 Mg Capsule (Nitrofurantoin Monohyd/M-Cryst) 100 Mg Capsule 1 Cap PO BID Keflex (Cephalexin) 500 Mg Capsule 1 Cap PO BID Vital Signs Vital Signs Date Time Temp Pulse Resp B/P (MAP) Pulse Ox O2 Delivery O2 Flow Rate FiO2 04/01/19 11:00 98.0 65 17 124/44 (70) 98 Room Air 98.0 Labs Laboratory Tests Test 03/31/19 03:25 White Blood Count 4.7 x10^3/uL (4.0-11.0) Red Blood Count 3.50 x10^6/uL (3.50-5.40) Hemoglobin 7.7 g/dL (12.0-15.5) Hematocrit 24.7 % (36.0-47.0) Mean Corpuscular Volume 70 fL (79-100) Mean Corpuscular Hemoglobin 22 pg (25-35) Mean Corpuscular Hemoglobin Concent 31 g/dL (31-37) Red Cell Distribution Width 17.1 % (11.5-14.5) Platelet Count 245 x10^3/uL (140-400) Neutrophils (%) (Auto) 58 % (31-73) Lymphocytes (%) (Auto) 31 % (24-48) Monocytes (%) (Auto) 7 % (0-9) Eosinophils (%) (Auto) 3 % (0-3) Basophils (%) (Auto) 1 % (0-3) Neutrophils # (Auto) 2.7 x10^3/uL (1.8-7.7) Lymphocytes # (Auto) 1.5 x10^3/uL (1.0-4.8) Monocytes # (Auto) 0.3 x10^3/uL (0.0-1.1) Eosinophils # (Auto) 0.1 x10^3/uL (0.0-0.7) Basophils # (Auto) 0.0 x10^3/uL (0.0-0.2) Sodium Level 143 mmol/L (136-145) Potassium Level 3.9 mmol/L (3.5-5.1) Chloride Level 108 mmol/L (98-107) Carbon Dioxide Level 25 mmol/L (21-32) Anion Gap 10 (6-14) Blood Urea Nitrogen 7 mg/dL (7-20) Creatinine 0.6 mg/dL (0.6-1.0) Estimated GFR (Cockcroft-Gault) 123.9 Glucose Level 99 mg/dL (70-99) Calcium Level 8.7 mg/dL (8.5-10.1) Allergies Allergies Coded Allergies Type Severity Reaction Last Updated Verified No Known Drug Allergies 05/24/18 No Disposition/Orders: D/C to Home NEGAR LATIF MD Apr 01, 2019 12:16
[2019-04-01] MEDS ORDERED: ACET325T9 PO (12:17)
--- NOTE | 2019-04-01 12:19 | DISCH ---
DISCHARGE INSTRUCTIONS Condition on Discharge Condition on Discharge: Stable Activity After Discharge Activity Instructions for Disc: Activity as tolerated Lifting Instructions after Dis: No heavy lifting, No pulling or pushing Driving Instructions after Dis: Do not drive today Diet after Discharge Diet after Discharge: Regular Checks after Discharge Checks after discharge: Check blood press - daily Contacting the DR. after DC Call your doctor for: If your condition worsens NEGAR LATIF MD Apr 01, 2019 12:19
--- NOTE | 2019-04-01 15:18 | NUR ---
Discharge Note: SHAKEEL MORRISON J[facility] Discharge instructions and discharge home medications reviewed with Patient and a copy given. All questions have been answered and understanding verbalized. The following instructions and handouts were given: patient visit report, medication information, education. Discontinued lines and drains: peripheral IV, tip intact. Patient discharged to home with self care via private vehicle. Patient left unit awake, in stable condition with all personal belongings.
== END 2019-04-01 14:30 | disposition home or self-care (01) | DRG 392 ==
LOC: ER 13:25 → 5 SOUTH 17:28
PROVIDERS: ADMIT Internal Medicine; ATTEND Internal Medicine
DX: A08.4 Viral intestinal infection, unspecified (principal); E87.6 Hypokalemia; D50.9 Iron deficiency anemia, unspecified; E83.42 Hypomagnesemia; E86.0 Dehydration; F41.9 Anxiety disorder, unspecified; K21.9 Gastro-esophageal reflux disease without esophagitis; N83.292 Other ovarian cyst, left side; N92.0 Excessive and frequent menstruation with regular cycle; R93.89 Abnormal findings on diagnostic imaging of other specified body structures; Z98.51 Tubal ligation status
CPT/HCPCS: 36415; 74177; 76830; 76856; 80048; 80053; 80307; 81001; 81025; 83516; 83540; 83550; 83735; 85007; 85025; 85651; 87045; 87086; 87177; 87205; 90471; 90686; 96361; 96374; 96375; J0696; J1756; J1885; J2270; J2405; J3475; J7030; Q9967; 99285-25; G0378